=== PATIENT | male | born 1950 | race African-American/Black ===

== ENCOUNTER 2016-10-18 16:50 | Emergency (ER) | payer MEDICARE, MEDICAID ==
--- NOTE | 2016-10-18 18:10 | ER Document Report ---
ED General - General Mode of Arrival: Medic Information source: Emergency Med Personnel TRAVEL OUTSIDE OF THE [place] IN LAST 30 DAYS: No - HPI Patient complains to provider of: Hypotension, Hypoxemia, and Shortness of Breath Onset: Just prior to arrival Associated symptoms: Other - see above <JHON SEGOVIA - Last Filed: 10/18/16 18:15> <CAROLINE ADDISON - Last Filed: 10/18/16 20:16> - General Chief Complaint: Low Blood Pressure Stated Complaint: BLOOD PRESSURE PROBLEM Notes: 66 year old male with history of severe dementia presents to the ED via EMS from [facility] with initial complaint of hypotension from [facility] nurses. EMS arrived and noted a blood pressure of 166/98. [facility] nurses state that the patient's oxygen saturation was low and the patient was short of breath. EMS state that the patient was saturating at 100% and his lungs were clear. (JHON SEGOVIA) - Related Data Allergies/Adverse Reactions: Sulfa (Sulfonamide Antibiotics) Allergy (Verified 07/14/16 12:55) trimethoprim [From Bactrim] Allergy (Verified 07/14/16 12:55) Past Medical History - General Information source: Emergency Med Personnel - Social History Smoking Status: Never Smoker Chew tobacco use (# tins/day): No Frequency of alcohol use: None Drug Abuse: None Family History: None, Reviewed & Not Pertinent Patient has suicidal ideation: No Patient has homicidal ideation: No - Past Medical History Cardiac Medical History: Reports: Hx Hypercholesterolemia, Hx Hypertension Psychiatric Medical History: Reports: Hx Dementia - Immunizations Immunizations up to date: No Hx Diphtheria, Pertussis, Tetanus Vaccination: Yes - unknown Hx Pneumococcal Vaccination: 08/08/14 <JHON SEGOVIA - Last Filed: 10/18/16 18:15> Review of Systems - Review of Systems -: Yes ROS unobtainable due to patient's medical condition <JHON SEGOVIA - Last Filed: 10/18/16 18:15> Physical Exam - General General appearance: Alert, Other - Patient is non-verbal. In distress: None - HEENT Head: Normocephalic, Atraumatic Eyes: Normal Extraocular movements intact: Yes Pupils: PERRL - Respiratory Respiratory status: No respiratory distress Breath sounds: Normal - Cardiovascular Rhythm: Regular Heart sounds: Normal auscultation - Abdominal Inspection: Normal - Back Back: Normal - Extremities General upper extremity: Other - contracture of the bilateral upper extremities. No: Normal inspection General lower extremity: Other - contracture of the bilateral lower extremities. No: Normal inspection - Neurological Neuro grossly intact: Yes - patient is severely demented - Psychological Associated symptoms: Other - Patient is severely demented - Skin Skin Temperature: Warm Skin Moisture: Dry Skin Color: Normal <JHON SEGOVIA - Last Filed: 10/18/16 18:15> <CAROLINE ADDISON - Last Filed: 10/18/16 20:16> - Vital signs Vitals: Temp Pulse Resp BP Pulse Ox 98.6 F 80 18 159/95 H 100 10/18/16 17:20 10/18/16 17:20 10/18/16 17:20 10/18/16 17:20 10/18/16 17:20 (JHON SEGOVIA) (CAROLINE ADDISON) Course <JHON SEGOVIA - Last Filed: 10/18/16 18:15> - Laboratory Result Diagrams: 10/18/16 18:15 10/18/16 18:15 <CAROLINE ADDISON - Last Filed: 10/18/16 20:16> - Re-evaluation Re-evalutation: 10/18/16 20:14 The patient's presentation for emergent today is quite similar to when I saw him previously for mental status changes. He is arousable, looks around, he does not talk, he does have contractures. Otherwise examination is unremarkable. (CAROLINE ADDISON) - Vital Signs Vital signs: Temp Pulse Resp BP Pulse Ox 98.2 F 80 18 159/95 H 100 10/18/16 17:43 10/18/16 17:43 10/18/16 17:43 10/18/16 17:43 10/18/16 17:43 (JHON SEGOVIA) (CAROLINE ADDISON) - Laboratory Laboratory results interpreted by me: 10/18/16 10/18/16 10/18/16 18:15 18:15 18:35 WBC 12.1 H RBC 4.16 L Hgb 11.9 L Hct 36.2 L Absolute Neutrophils 9.1 H Sodium 146.1 H Alkaline Phosphatase 168 H Urine Blood SMALL H Urine Urobilinogen 4.0 H Ur Leukocyte Esterase TRACE H (CAROLINE ADDISON) Discharge <JHON SEGOVIA - Last Filed: 10/18/16 18:15> <CAROLINE ADDISON - Last Filed: 10/18/16 20:16> - Discharge Clinical Impression: Dementia Qualifiers: Dementia type: unspecified type Dementia behavioral disturbance: without behavioral disturbance Qualified Code(s): F03.90 - Unspecified dementia without behavioral disturbance Condition: Stable Disposition: HOME, SELF-CARE Additional Instructions: No abnormalities were found today on the laboratory and physical exam. Continue your regular medications. With your doctor as needed. RETURN TO THE EMERGENCY ROOM IF ANY NEW OR WORSENING SYMPTOMS. Scribe Attestation: 10/18/16 20:16 I personally performed the services described in the documentation, reviewed and edited the documentation which was dictated to the scribe in my presence, and it accurately records my words and actions. (CAROLINE ADDISON) Scribe Documentation - Scribe Written by Breanna:: Breanna Bell, 10/18/2016 18:25 acting as scribe for :: Kem <JHON SEGOVIA - Last Filed: 10/18/16 18:15>
[2016-10-18 18:32] LABS: ABSOLUTE EOSINOPHILS # (AUTO) 0.1 10^3/uL (0.0-0.6); ABSOLUTE LYMPHOCYTES (AUTO) 2.1 10^3/uL (0.5-4.7); ABSOLUTE MONOCYTES (AUTO) 0.8 10^3/uL (0.1-1.4); ABSOLUTE NEUT (AUTO) 9.1 10^3/uL (1.7-8.2); BASOPHILS % (AUTO) 0.2 % (0-2); EOSINOPHILS % (AUTO) 0.7 % (0-6); HEMATOCRIT 36.2 % (37.9-51.0); HEMOGLOBIN 11.9 g/dL (13.5-17.0); HGB HCT DIFFERENCE -0.5; MEAN CORPUSCULAR HEMOGLOBIN 28.6 pg (27.0-33.4); MEAN CORPUSCULAR HGB CONC 32.8 g/dL (32.0-36.0); MEAN CORPUSCULAR VOLUME 87 fl (80-97); MONOCYTES % (AUTO) 6.9 % (3-13); RED BLOOD COUNT 4.16 10^6/uL (4.35-5.55); RED CELL DISTRIBUTION WIDTH 13.4 % (11.5-14.0); SEGMENTED NEUTROPHILS % (AUTO) 75.2 % (42-78); WHITE BLOOD COUNT 12.1 10^3/uL (4.0-10.5)
[2016-10-18 18:49] LABS: ALANINE AMINOTRANSFERASE 71 U/L (21-72); ALKALINE PHOSPHATASE 168 U/L (38-126); ANION GAP 14 (5-19); ASPARTATE AMINO TRANSFERASE 32 U/L (17-59); BILIRUBIN,TOTAL 0.5 mg/dL (0.2-1.3); BLOOD UREA NITROGEN 16 mg/dL (7-20); CALCIUM 9.8 mg/dL (8.4-10.2); CARBON DIOXIDE 25 mmol/L (22-30); CHLORIDE 107 mmol/L (98-107); CREATININE RESULT 0.78 mg/dL (0.52-1.25); GLUCOSE 104 mg/dL (75-110); POTASSIUM 4.9 mmol/L (3.6-5.0); SODIUM 146.1 mmol/L (137-145); TOTAL PROTEIN 7.2 g/dL (6.3-8.2)
[2016-10-18 18:54] LABS: APPEARANCE,URINE CLEAR; BILIRUBIN,URINE NEGATIVE (NEGATIVE); GLUCOSE, URINE NEGATIVE (NEGATIVE); KETONES,URINE NEGATIVE (NEGATIVE); LEUKOCYTE ESTERASE,URINE TRACE (NEGATIVE); NITRITE,URINE NEGATIVE (NEGATIVE); PROTEIN,URINE NEGATIVE (NEGATIVE); URINE SPECIFIC GRAVITY 1.021
[2016-10-19 06:11] VITALS: BP 140/86
== END 2016-10-18 23:30 | disposition home or self-care (01) ==
LOC: ER 16:50
DX: F03.90 Unspecified dementia, unspecified severity, without behavioral disturbance, psychotic disturbance, mood disturbance, and anxiety (principal); R06.02 Shortness of breath; I95.9 Hypotension, unspecified; M62.49 Contracture of muscle, multiple sites; E78.00 Pure hypercholesterolemia, unspecified; I10 Essential (primary) hypertension; Z88.2 Allergy status to sulfonamides; Z88.3 Allergy status to other anti-infective agents
CPT/HCPCS: 36415; 80053; 81001; 85025; 99285

== ENCOUNTER 2016-11-29 14:11 | Emergency (ER) | payer MEDICARE, MEDICAID ==
--- NOTE | 2016-11-29 16:09 | ER Document Report ---
ED General - General Chief Complaint: Fall Stated Complaint: HEAD INJURY TRAVEL OUTSIDE OF THE [place] IN LAST 30 DAYS: No - HPI Patient complains to provider of: possible fall Notes: Patient coming from local shelter facility after a possible fall. The history is very medics there was no witness to a fall when EMS arrived patient was in his bed patient does have a history of falls and does wear helmet. Upon my evaluation patient is in bed no complaints with the covers over his head. Patient denies pain and shakes his head yes when asked if he wanted to go back home. - Related Data Allergies/Adverse Reactions: Sulfa (Sulfonamide Antibiotics) Allergy (Verified 07/14/16 12:55) trimethoprim [From Bactrim] Allergy (Verified 07/14/16 12:55) Past Medical History - Social History Smoking Status: Unknown if Ever Smoked Family History: None, Reviewed & Not Pertinent - Past Medical History Cardiac Medical History: Reports: Hx Hypercholesterolemia, Hx Hypertension Psychiatric Medical History: Reports: Hx Dementia - Immunizations Immunizations up to date: No Hx Diphtheria, Pertussis, Tetanus Vaccination: Yes - unknown Hx Pneumococcal Vaccination: 08/08/14 Review of Systems - Review of Systems -: Yes ROS unobtainable due to patient's medical condition - Dementia Physical Exam - Vital signs Interpretation: Normal - General General appearance: Appears well, Alert - HEENT Head: Normocephalic, Atraumatic Pupils: PERRL Pharynx: Normal Notes: No tenderness to palpation of the patient's face there is no signs of any trauma. - Respiratory Respiratory status: No respiratory distress Chest status: Nontender Breath sounds: Normal Chest palpation: Normal - Cardiovascular Rhythm: Regular Heart sounds: Normal auscultation Murmur: No - Abdominal Inspection: Normal Distension: No distension Bowel sounds: Normal Tenderness: Nontender Organomegaly: No organomegaly - Back Back: Normal, Nontender - Extremities General upper extremity: Normal inspection, Nontender, Normal color, Normal ROM , Normal temperature, Other - No bony prominence tenderness no deformities General lower extremity: Normal inspection, Nontender, Normal color, Normal ROM , Normal temperature, Normal weight bearing, Other - No bony prominence tenderness no deformities. No: Otoniel's sign - Neurological Neuro grossly intact: Yes - Skin Skin Temperature: Warm Skin Moisture: Dry Skin Color: Normal Discharge - Discharge Clinical Impression: History of fall Dementia Qualifiers: Dementia type: unspecified type Dementia behavioral disturbance: without behavioral disturbance Qualified Code(s): F03.90 - Unspecified dementia without behavioral disturbance Condition: Good Disposition: HOME, SELF-CARE Additional Instructions: Patient was evaluated today no significant trauma was found on evaluation. Please create an environment to prevent falls please make sure that patient continues to wear his helmet
[2016-11-29 17:28] VITALS: BP 129/77
== END 2016-11-29 17:19 | disposition home or self-care (01) ==
LOC: ER 14:11
DX: Z91.81 History of falling (principal); F03.90 Unspecified dementia, unspecified severity, without behavioral disturbance, psychotic disturbance, mood disturbance, and anxiety; E78.00 Pure hypercholesterolemia, unspecified; I10 Essential (primary) hypertension; Z88.2 Allergy status to sulfonamides; Z88.3 Allergy status to other anti-infective agents
CPT/HCPCS: 99284

== ENCOUNTER 2017-02-04 09:27 | Emergency (ER) | payer MEDICARE, MEDICAID ==
--- NOTE | 2017-02-04 10:36 | ER Document Report ---
ED General - General Chief Complaint: Facial Injury Stated Complaint: FALL,HEAD INJURY Mode of Arrival: Medic Information source: Emergency Med Personnel, Outside Facility Records Cannot obtain history due to: Dementia Notes: 58-year-old male history dementia presents after a fall. Patient is a history of multiple falls, actually wears a helmet however today while they were transporting the patient out of wheelchair he fell forward striking his head. Patient acting appropriately at his baseline otherwise patient has not vomited TRAVEL OUTSIDE OF THE [place] IN LAST 30 DAYS: No - HPI Onset: Just prior to arrival Onset/Duration: Sudden Quality of pain: No pain Severity: Mild Pain Level: Denies Associated symptoms: Other Exacerbated by: Denies Relieved by: Denies Similar symptoms previously: Yes Recently seen / treated by doctor: Yes - Related Data Allergies/Adverse Reactions: Sulfa (Sulfonamide Antibiotics) Allergy (Verified 02/04/17 09:38) trimethoprim [From Bactrim] Allergy (Verified 02/04/17 09:38) Past Medical History - Social History Smoking Status: Former Smoker Cigarette use (# per day): No Chew tobacco use (# tins/day): No Smoking Education Provided: No Frequency of alcohol use: None Drug Abuse: None Family History: None, Reviewed & Not Pertinent - Past Medical History Cardiac Medical History: Reports: Hx Hypercholesterolemia, Hx Hypertension Psychiatric Medical History: Reports: Hx Dementia - Immunizations Immunizations up to date: No Hx Diphtheria, Pertussis, Tetanus Vaccination: Yes - unknown Hx Pneumococcal Vaccination: 08/08/14 Review of Systems - Review of Systems Notes: REVIEW OF SYSTEMS: CONSTITUTIONAL : Denies fever, chills, or sweats. Denies recent illness. EENT: Denies eye, ear, throat, or mouth pain or symptoms. Denies nasal or sinus congestion or discharge. Denies throat, tongue, or mouth swelling or difficulty swallowing. CARDIOVASCULAR: Denies chest pain. Denies palpitations or racing or irregular heart beat. Denies ankle edema. RESPIRATORY: Denies cough, cold, or chest congestion. Denies shortness of breath, difficulty breathing, or wheezing. GASTROINTESTINAL: Denies abdominal pain or distention. Denies nausea, vomiting , or diarrhea. Denies blood in vomitus, stools, or per rectum. Denies black, tarry stools. Denies constipation. GENITOURINARY: Denies difficulty urinating, painful urination, burning, frequency, blood in urine, or discharge. MUSCULOSKELETAL: Denies back or neck pain or stiffness. Denies joint pain or swelling. SKIN: Denies rash, lesions or sores. HEMATOLOGIC : Denies easy bruising or bleeding. LYMPHATIC: Denies swollen, enlarged glands. NEUROLOGICAL: Denies confusion or altered mental status. Denies passing out or loss of consciousness. Denies dizziness or lightheadedness. Denies headache. Denies weakness or paralysis or loss of use of either side. Denies problems with gait or speech. Denies sensory loss, numbness, or tingling. Denies seizures. Admits to head injury PSYCHIATRIC: Denies anxiety or stress. Denies depression, suicidal ideation, or homicidal ideation. ALL OTHER SYSTEMS REVIEWED AND NEGATIVE. Dictation was performed using [employer] voice recognition software PHYSICAL EXAMINATION: GENERAL: Well-appearing, well-nourished and in no acute distress. HEAD: Left frontal hematoma EYES: Pupils equal round and reactive to light, extraocular movements intact, sclera anicteric, conjunctiva are normal. ENT: Nares patent, oropharynx clear without exudates. Moist mucous membranes. Superficial left upper lip laceration NECK: Normal range of motion, supple without lymphadenopathy LUNGS: Breath sounds clear to auscultation bilaterally and equal. No wheezes rales or rhonchi. HEART: Regular rate and rhythm without murmurs ABDOMEN: Soft, nontender, nondistended abdomen. No guarding, no rebound. No masses appreciated. Musculoskeletal: Normal range of motion, no pitting or edema. No cyanosis. NEUROLOGICAL: Cranial nerves grossly intact. Normal speech, normal gait. Normal sensory, motor exams PSYCH: Normal mood, normal affect. SKIN: Warm, Dry, normal turgor, no rashes or lesions noted. Physical Exam - Vital signs Vitals: Pulse Resp BP Pulse Ox 66 16 137/70 H 96 02/04/17 10:00 02/04/17 10:00 02/04/17 10:00 02/04/17 10:00 Course - Re-evaluation Re-evalutation: 02/04/17 10:36 Patient immediately placed in c-collar, CT head neck pending 02/04/17 11:51 CT head neck noted no acute abnormality c-collar was removed. Patient is at his baseline. Granddaughter is at bedside and I will discharge back to care facility After performing a Medical Screening Examination, I estimate there is LOW risk for INTRACRANIAL HEMORRHAGE, UNSTABLE SPINE FRACTURE, CENTRAL CORD SYNDROME, CAUDA EQUINA, THORACIC AORTIC DISSECTION, PNEUMOTHORAX, PERFORATED BOWEL, RUPTURED ABDOMINAL AORTIC ANEURYSM, ACUTE TENDON RUPTURE, COMPARTMENT SYNDROME, or OPEN FRACTURE, thus I consider the discharge disposition reasonable. Also, there is no evidence or peritonitis, sepsis, or toxicity. I have reevaluated this patient multiple times and no significant life threatening changes are noted. The patient granddaughter and I have discussed the diagnosis and risks, and we agree with discharging home to follow-up with their primary doctor with the understanding that symptoms and presentations can change. We also discussed returning to the Emergency Department immediately if new or worsening symptoms occur. We have discussed the symptoms which are most concerning (e.g., bloody stool, fever, changing or worsening pain, vomiting) that necessitate immediate return. - Vital Signs Vital signs: Temp Pulse Resp BP Pulse Ox 66 16 137/70 H 96 02/04/17 10:00 02/04/17 10:00 02/04/17 10:00 02/04/17 10:00 - Diagnostic Test Radiology reviewed: Image reviewed, Reports reviewed - Imaging notes no significant abnormality Discharge - Discharge Clinical Impression: Fall Qualifiers: Encounter type: initial encounter Qualified Code(s): W19.XXXA - Unspecified fall, initial encounter Head injury Qualifiers: Encounter type: initial encounter Qualified Code(s): S09.90XA - Unspecified injury of head, initial encounter Hematoma of frontal scalp Qualifiers: Encounter type: initial encounter Qualified Code(s): S00.03XA - Contusion of scalp, initial encounter Condition: Stable Disposition: HOME, SELF-CARE Additional Instructions: Please do not allow patient to fall Follow up with your physician tomorrow for further care or return to the ED IMMEDIATELY if symptoms worsen or new concerns occur. If you cannot afford to follow up with your primary care physician a list of low cost clinics have been provided at the end of your discharge papers as well.
[2017-02-04 12:46] VITALS: BP 137/88
== END 2017-02-04 12:46 | disposition home or self-care (01) ==
LOC: ER 09:27
DX: S00.03XA Contusion of scalp, initial encounter (principal); W05.0XXA Fall from non-moving wheelchair, initial encounter; Y93.89 Activity, other specified; Y92.129 Unspecified place in nursing home as the place of occurrence of the external cause; I10 Essential (primary) hypertension; Z88.2 Allergy status to sulfonamides; Z88.1 Allergy status to other antibiotic agents; Z87.891 Personal history of nicotine dependence
CPT/HCPCS: 99284; 70450; 72125; L0120

== ENCOUNTER 2017-07-22 16:31 | Emergency (ER) | payer MEDICARE, MEDICAID ==
[2017-07-22 17:33] VITALS: BP 174/60
--- NOTE | 2017-07-22 17:40 | ER Document Report ---
ED Fall - General Chief Complaint: Fall Stated Complaint: HEAD INJURY/FALL Time Seen by Provider: 07/22/17 17:21 Notes: This is a 66-year-old Alzheimer dementia patient from a [facility] status post fall this morning. By report from nursing facility patient was found on the floor. Was in a wheelchair and fell out. Patient wears a helmet at all times due to frequent falls. According to the notes and [facility] staff states that he is acting normal. Daughter is at bedside and states that he has to come every time he falls based on protocols. Daughter states that he is acting normal. Does not appear to be in any distress. Patient is unable to communicate based on severe dementia and aphasia. TRAVEL OUTSIDE OF THE [place] IN LAST 30 DAYS: No - Related data Allergies/Adverse Reactions: Sulfa (Sulfonamide Antibiotics) Allergy (Verified 02/04/17 09:38) trimethoprim [From Bactrim] Allergy (Verified 02/04/17 09:38) Past Medical History - General Information source: Relative, Outside Facility Records Cannot obtain history due to: Dementia - Social History Smoking Status: Former Smoker Family History: None, Reviewed & Not Pertinent Patient has suicidal ideation: No Patient has homicidal ideation: No - Past Medical History Cardiac Medical History: Reports: Hx Hypercholesterolemia, Hx Hypertension Renal/ Medical History: Denies: Hx Peritoneal Dialysis Psychiatric Medical History: Reports: Hx Dementia Surgical Hx: Negative - Immunizations Immunizations up to date: No Hx Diphtheria, Pertussis, Tetanus Vaccination: Yes - unknown Hx Pneumococcal Vaccination: 08/08/14 Review of Systems - Review of Systems -: Yes ROS unobtainable due to patient's medical condition - Unable to obtain due to dementia. Physical Exam - Vital signs Vitals: Temp Pulse Resp BP Pulse Ox 98.5 F 70 18 174/60 H 97 07/22/17 17:22 07/22/17 17:22 07/22/17 17:22 07/22/17 17:22 07/22/17 17:22 Interpretation: Normal - General General appearance: Alert - HEENT Head: Normocephalic, Atraumatic. No: Abrasions, Cardenas's sign, Ecchymosis, Open wounds Eyes: Normal Conjunctiva: Normal Cornea: Normal Extraocular movements intact: Yes Pupils: PERRL - Respiratory Respiratory status: No respiratory distress. No: Respiratory distress, Labored Breath sounds: Normal Chest palpation: Normal - Cardiovascular Rhythm: Regular Heart sounds: Normal auscultation Murmur: No Pulses: Normal: Femoral, Posterior tibial, Dorsalis pedis Normal capillary refill: Yes - Abdominal Inspection: Normal Distension: No distension Bowel sounds: Normal Tenderness: Nontender. No: Rebound Organomegaly: No organomegaly - Back Back: Nontender. No: Deformity/step-off, Vertebra tenderness, Scars, Wounds - Extremities General upper extremity: Normal ROM General lower extremity: Normal inspection Shoulder: Normal Arm: Normal Elbow: Normal Forearm: Normal Wrist: Normal Hand: Normal Hip: Normal Knee: Normal Ankle: Normal. No: Tender Foot: Normal. No: Tender - Neurological Cognition: Other - Baseline dementia Speech: Expressive aphasia Cranial nerves: Normal Motor strength normal: LUE, RUE, LLE, RLE - Psychological Associated symptoms: Other - Dementia - Skin Skin Temperature: Warm Skin Moisture: Dry Skin Color: Normal Irregularity with: negative: Swelling, Tenderness Notes: No obvious lacerations or abrasions or contusions. No obvious decubiti. Course - Re-evaluation Re-evalutation: 07/22/17 17:39 This is a 66-year-old male with end-stage dementia. No obvious signs of trauma. Patient is at baseline according to daughter and [facility] records. No physical signs of trauma. At this time I do not feel compelled to order any further testing. Thankfully, patient wears a helmet at all times due to his frequent falls so may be this saved him from having any kind of intracranial injuries. Spoke at length with daughter regarding his care and she will continue to monitor at the nursing facility. If patient develops any worsening pain or decreased mental status he is to be returned here for further evaluation but will discharge at this time in stable condition. - Vital Signs Vital signs: Temp Pulse Resp BP Pulse Ox 98.5 F 70 18 174/60 H 97 07/22/17 17:22 07/22/17 17:22 07/22/17 17:22 07/22/17 17:22 07/22/17 17:22 Discharge - Discharge Clinical Impression: Dementia, Accident due to mechanical fall without injury Condition: Good Disposition: HOME-SNF (ED ONLY) Additional Instructions: Dementia The exam shows a decrease in mental ability called dementia. Signs of dementia include a gradual loss of memory and a decreased ability to reason and solve problems. Personality changes, hostility, lack of self-care, and loss of bladder or bowel control are later signs of dementia. In these later stages, patients may become confused, lost, fearful, or agitated, even in familiar places. Alzheimer's disease is the most common type of dementia. It has no known cause or specific treatment. Other causes include alcohol and drug abuse, medication effects (especially tranquilizers and sleeping pills), strokes, head injuries, and brain tumors. Sometimes severe depression in an elderly person is mistaken for dementia, and this can be treated if recognized. A complete medical evaluation and ongoing care with a doctor is important. Most people with dementia need help or supervision with daily living. Some may be able to live independently with occasional help; others require foster care or even [facility] placement. Alcohol, sedatives, and antihistamines may make the symptoms worse and should be avoided. Alzheimer's disease support groups are available in some communities and can be very valuable to the entire family. Prescription medication can ease the symptoms of Alzheimer's disease in some patients. Please arrange for medical follow-up. Return here if there is a sudden change in mental function, inability to move an arm or leg, inability to speak, fever, or any other significant change. Mechanical fall If patient begins to experience any change in mental status, unexplained pain or any other concerns please notify nursing staff to have patient reevaluated either by his primary care doctor at the nursing facility or transport patient back to the emergency department for repeat evaluation.
== END 2017-07-22 20:33 ==
LOC: ER 16:31
DX: F03.90 Unspecified dementia, unspecified severity, without behavioral disturbance, psychotic disturbance, mood disturbance, and anxiety (principal); W05.0XXA Fall from non-moving wheelchair, initial encounter; Y92.129 Unspecified place in nursing home as the place of occurrence of the external cause; Z91.81 History of falling; E78.00 Pure hypercholesterolemia, unspecified; I10 Essential (primary) hypertension
CPT/HCPCS: 99284

== ENCOUNTER 2017-09-08 06:19 | Emergency (ER) | payer MEDICARE, MEDICAID ==
[2017-09-08 07:00] LABS: ABSOLUTE EOSINOPHILS # (AUTO) 0.1 10^3/uL (0.0-0.6); ABSOLUTE LYMPHOCYTES (AUTO) 1.1 10^3/uL (0.5-4.7); ABSOLUTE MONOCYTES (AUTO) 0.8 10^3/uL (0.1-1.4); ABSOLUTE NEUT (AUTO) 4.3 10^3/uL (1.7-8.2); BASOPHILS % (AUTO) 0.3 % (0-2); EOSINOPHILS % (AUTO) 1.7 % (0-6); HEMATOCRIT 36.5 % (37.9-51.0); HEMOGLOBIN 12.3 g/dL (13.5-17.0); HGB HCT DIFFERENCE 0.4; LYMPHOCYTES % (AUTO) 17.3 % (13-45); MEAN CORPUSCULAR HEMOGLOBIN 29.2 pg (27.0-33.4); MEAN CORPUSCULAR HGB CONC 33.6 g/dL (32.0-36.0); MEAN CORPUSCULAR VOLUME 87 fl (80-97); MONOCYTES % (AUTO) 13.1 % (3-13); RED CELL DISTRIBUTION WIDTH 13.9 % (11.5-14.0); SEGMENTED NEUTROPHILS % (AUTO) 67.6 % (42-78); WHITE BLOOD COUNT 6.4 10^3/uL (4.0-10.5)
--- NOTE | 2017-09-08 07:11 | RADIOLOGY REPORT (SQ) ---
EXAM DESCRIPTION: CHEST SINGLE VIEW COMPLETED DATE/TIME: 09/08/2017 7:01 am REASON FOR STUDY: er 19 high fever COMPARISON: 10.08.16 EXAM PARAMETERS: NUMBER OF VIEWS: One view. TECHNIQUE: Single frontal radiographic view of the chest acquired. RADIATION DOSE: NA LIMITATIONS: None. FINDINGS: LUNGS AND PLEURA: No opacities, masses or pneumothorax. No pleural effusion. MEDIASTINUM AND HILAR STRUCTURES: No masses. Contour normal. HEART AND VASCULAR STRUCTURES: Heart normal in size. Normal vasculature. BONES: No acute findings. HARDWARE: None in the chest. OTHER: No other significant finding. IMPRESSION: NO ACUTE RADIOGRAPHIC FINDING IN THE CHEST. TECHNICAL DOCUMENTATION: JOB ID: [id number] [employer]- All Rights Reserved
[2017-09-08 07:19] LABS: ALANINE AMINOTRANSFERASE 45 U/L (21-72); ALBUMIN 3.7 g/dL (3.5-5.0); ALKALINE PHOSPHATASE 92 U/L (38-126); ANION GAP 14 (5-19); ASPARTATE AMINO TRANSFERASE 27 U/L (17-59); BILIRUBIN,DIRECT 0.3 mg/dL (0.0-0.4); BILIRUBIN,TOTAL 0.3 mg/dL (0.2-1.3); BLOOD UREA NITROGEN 17 mg/dL (7-20); CALCIUM 8.9 mg/dL (8.4-10.2); CARBON DIOXIDE 21 mmol/L (22-30); CHLORIDE 111 mmol/L (98-107); GLUCOSE 116 mg/dL (75-110); POTASSIUM 4.1 mmol/L (3.6-5.0); SODIUM 145.7 mmol/L (137-145); TOTAL PROTEIN 6.6 g/dL (6.3-8.2)
[2017-09-08 08:50] LABS: APPEARANCE,URINE CLEAR; BILIRUBIN,URINE NEGATIVE (NEGATIVE); GLUCOSE, URINE NEGATIVE (NEGATIVE); KETONES,URINE NEGATIVE (NEGATIVE); LEUKOCYTE ESTERASE,URINE NEGATIVE (NEGATIVE); NITRITE,URINE NEGATIVE (NEGATIVE); PROTEIN,URINE NEGATIVE (NEGATIVE); URINE SPECIFIC GRAVITY 1.016; UROBILINOGEN,URINE NEGATIVE mg/dL (<2.0)
--- NOTE | 2017-09-08 10:37 | ER Document Report ---
ED Fever - General Chief Complaint: Fever Stated Complaint: FEVER Time Seen by Provider: 09/08/17 07:22 Mode of Arrival: Medic Information source: Emergency Med Personnel, Outside Facility Records Notes: Patient is a 66-year-old male with Alzheimer's dementia who presents to the ER Via EMS from [facility] (longterm) for "high fever." They did not either take his temperature or report his temperature to EMS, EMS stating that it was an "unknown temperature" but they did give "an unknown dose" of Tylenol per EMS. Tylenol was also given on EMS as they did get a temperature of 100.8F. Here on arrival his temperature was 100.2F. Patient is nonverbal and this appears to be his usual mental state. I have no other information at this time. TRAVEL OUTSIDE OF THE [place] IN LAST 30 DAYS: No - Related Data Allergies/Adverse Reactions: Sulfa (Sulfonamide Antibiotics) Allergy (Verified 09/08/17 06:31) trimethoprim [From Bactrim] Allergy (Verified 09/08/17 06:31) Past Medical History - General Information source: Emergency Med Personnel, Outside Facility Records - Social History Smoking Status: Never Smoker Family History: None, Reviewed & Not Pertinent Patient has suicidal ideation: No Patient has homicidal ideation: No - Past Medical History Cardiac Medical History: Reports: Hx Hypercholesterolemia, Hx Hypertension Renal/ Medical History: Denies: Hx Peritoneal Dialysis Psychiatric Medical History: Reports: Hx Dementia - Immunizations Immunizations up to date: No Hx Diphtheria, Pertussis, Tetanus Vaccination: Yes - unknown Hx Pneumococcal Vaccination: 08/08/14 Review of Systems - Review of Systems Constitutional: See HPI EENT: No symptoms reported Cardiovascular: No symptoms reported Respiratory: No symptoms reported Gastrointestinal: No symptoms reported Genitourinary: No symptoms reported Male Genitourinary: No symptoms reported Musculoskeletal: No symptoms reported Skin: No symptoms reported Hematologic/Lymphatic: No symptoms reported Neurological/Psychological: See HPI Physical Exam - Vital signs Vitals: Temp Pulse Resp BP Pulse Ox 100.2 F 102 H 19 120/82 97 09/08/17 06:31 09/08/17 06:31 09/08/17 06:31 09/08/17 06:31 09/08/17 06:31 - Notes Notes: PHYSICAL EXAMINATION: GENERAL: demented, nonverbal, in no acute distress. HEAD: Atraumatic, normocephalic. EYES: Pupils equal round and reactive to light, extraocular movements intact, sclera anicteric, conjunctiva are normal. ENT: ear canals without erythema or foreign body, TMs pearly garces with good bony landmarks, nares patent, oropharynx clear without exudates. Moist mucous membranes. NECK: Normal range of motion, supple without lymphadenopathy LUNGS: CTAB and equal. No wheezes rales or rhonchi. HEART: Regular rate and rhythm without murmurs ABDOMEN: Soft, no tenderness. No guarding, no rebound GI/: no CVA tenderness EXTREMITIES: contracted right arm, no pitting edema. No cyanosis. NEUROLOGICAL: demented, nonverbal, opens eyes occasionally SKIN: Warm, Dry, normal turgor, no rashes or lesions noted Course - Re-evaluation Re-evalutation: 09/08/17 11:36 Lab work is unremarkable with a normal white blood cell count, normal urinalysis , negative chest x-ray, negative influenza and strep. Blood cultures are pending at this time. I have no source of patient's fever and have consulted with my attending, Dr. Brownlee who agrees with my plan to send patient back to the longterm to be given Tylenol for fever every 4 hours as needed for fever and return with worsening symptoms. - Vital Signs Vital signs: Temp Pulse Resp BP Pulse Ox 98.0 F 102 H 30 H 142/97 H 100 09/08/17 09:00 09/08/17 06:31 09/08/17 11:01 09/08/17 10:58 09/08/17 11:00 - Laboratory Result Diagrams: 09/08/17 06:45 09/08/17 06:45 Laboratory results interpreted by me: 09/08/17 09/08/17 09/08/17 06:45 06:45 07:55 RBC 4.20 L Hgb 12.3 L Hct 36.5 L Plt Count 124 L Monocytes % 13.1 H Sodium 145.7 H Chloride 111 H Carbon Dioxide 21 L Glucose 116 H Urine Blood SMALL H Discharge - Discharge Clinical Impression: Dementia Qualifiers: Dementia type: Alzheimer's disease Alzheimer's disease onset: unspecified onset Dementia behavioral disturbance: with behavioral disturbance Qualified Code(s): G30.8 - Other Alzheimer's disease Fever Qualifiers: Fever type: unspecified Qualified Code(s): R50.9 - Fever, unspecified Condition: Stable Disposition: HOME-SNF (ED ONLY) Instructions: Acetaminophen, Fever ([facility]) Additional Instructions: Please give him Tylenol every 4 hours as needed for fever. Return immediately for any new or worsening symptoms. Follow up with primary care provider, call tomorrow to make followup appointment. Referrals: EZRA OSORIO MD [NO LOCAL MD] - Follow up as needed
[2017-09-08 12:11] VITALS: BP 135/98
== END 2017-09-08 11:58 ==
LOC: ER 06:19
DX: G30.8 Other Alzheimer's disease (principal); R50.9 Fever, unspecified; F02.80 Dementia in other diseases classified elsewhere, unspecified severity, without behavioral disturbance, psychotic disturbance, mood disturbance, and anxiety
CPT/HCPCS: 36415; 51701; 71010; 80053; 81001; 82550; 83605; 85025; 87040; 87070; 87804; 87880; 99285

== ENCOUNTER 2017-09-15 16:44 | Emergency (ER) | payer MEDICARE, MEDICAID ==
--- NOTE | 2017-09-15 17:41 | RADIOLOGY REPORT (SQ) ---
EXAM DESCRIPTION: CT HEAD WITHOUT COMPLETED DATE/TIME: 09/15/2017 5:25 pm REASON FOR STUDY: fall COMPARISON: 02/04/2017 TECHNIQUE: Axial images acquired through the brain without intravenous contrast. Images reviewed wi th bone, brain and subdural windows. Images stored on PACS. All CT scanners at this facility use dose modulation, iterative reconstruction, and/or weight based d osing when appropriate to reduce radiation dose to as low as reasonably achievable (ALARA). [facility]: Dose Right [facility]: CareDose [facility]: Dose Right [facility]: Teradose 4D [facility]: ClickSquared RADIATION DOSE: 67.05 mGy. LIMITATIONS: None. FINDINGS: VENTRICLES: Age-appropriate. CEREBRUM: No masses. No hemorrhage. No midline shift. Areas of low density in the white matter mos t likely due to chronic micro-vascular ischemic change. No evidence for acute infarction. CEREBELLUM: No masses. No hemorrhage. No alteration of density. No evidence for acute infarction. EXTRAAXIAL SPACES: Mild age-related involutional change. No fluid collections. No masses. ORBITS AND GLOBE: No intra- or extraconal masses. Normal contour of globe without masses. CALVARIUM: No fracture. PARANASAL SINUSES: Mild chronic mucosal thickening. SOFT TISSUES: No mass or hematoma. OTHER: No other significant finding. IMPRESSION: MILD CHRONIC CHANGES OF ATROPHY AND MICROVASCULAR ISCHEMIA. NO ACUTE PROCESS. EVIDENCE OF ACUTE STROKE: NO. TECHNICAL DOCUMENTATION: JOB ID: [id number] [place]-72 Quality ID # [id number]: Final reports with documentation of one or more dose reduction techniques (e.g., Au tomated exposure control, adjustment of the mA and/or kV according to patient size, use of iterative reconstruction technique) 2010 [employer]- All Rights Reserved
--- NOTE | 2017-09-15 17:46 | RADIOLOGY REPORT (SQ) ---
EXAM DESCRIPTION: CT CERVICAL SPINE WITHOUT COMPLETED DATE/TIME: 09/15/2017 5:25 pm REASON FOR STUDY: fall COMPARISON: None. TECHNIQUE: Axial images acquired through the cervical spine without intravenous contrast. Images re viewed with lung, soft tissue and bone windows. Reconstructed coronal and sagittal MPR images review ed. Images stored on PACS. All CT scanners at this facility use dose modulation, iterative reconstruction, and/or weight based d osing when appropriate to reduce radiation dose to as low as reasonably achievable (ALARA). [facility]: Dose Right [facility]: CareDose [facility]: Dose Right [facility]: Teradose 4D [facility]: An[employer] RADIATION DOSE: 18.70 mGy. LIMITATIONS: None. FINDINGS: ALIGNMENT: Anatomic. MINERALIZATION: Normal. VERTEBRAL BODIES: No fractures or dislocation. DISCS: Multilevel disc space narrowing with osteophytes. FACETS, LATERAL MASSES, POSTERIOR ELEMENTS: Facet arthropathy. No fractures. No dislocation. No ac bessie findings. HARDWARE: None in the spine. VISUALIZED RIBS: No fractures. LUNG APICES AND SOFT TISSUES: No significant or acute findings. OTHER: No other significant finding. IMPRESSION: CHRONIC DEGENERATIVE CHANGES. NO ACUTE FINDINGS. TECHNICAL DOCUMENTATION: JOB ID: [id number] [place]-72 Quality ID # [id number]: Final reports with documentation of one or more dose reduction techniques (e.g., Au tomated exposure control, adjustment of the mA and/or kV according to patient size, use of iterative reconstruction technique) 2010 [employer]- All Rights Reserved
--- NOTE | 2017-09-15 18:42 | ER Document Report ---
ED Fall - General Chief Complaint: Fall Stated Complaint: FALL/ BODY PAIN Time Seen by Provider: 09/15/17 18:16 Information source: Relative Notes: Patient presents from the [facility] rehabilitation secondary to a fall from a low height. Patient does not talk or walk at baseline. Family is at the bedside and states that he is at his baseline. TRAVEL OUTSIDE OF THE [place] IN LAST 30 DAYS: No - HPI Occurred: Just prior to arrival Where: Home Context: Fell from height Associated symptoms: None Location of injury/pain: Head Quality of pain: Other - unable to obtain seconary to patient's condition Severity: Mild Pain Level: Denies Prehospital interventions: C-collar - Related data Allergies/Adverse Reactions: Sulfa (Sulfonamide Antibiotics) Allergy (Verified 09/08/17 06:31) trimethoprim [From Bactrim] Allergy (Verified 09/08/17 06:31) Past Medical History - General Information source: Patient - Social History Smoking Status: Unknown if Ever Smoked Cigarette use (# per day): No Chew tobacco use (# tins/day): No Smoking Education Provided: No Frequency of alcohol use: None Drug Abuse: None Family History: None, Reviewed & Not Pertinent Patient has suicidal ideation: No Patient has homicidal ideation: No - Past Medical History Cardiac Medical History: Reports: Hx Hypercholesterolemia, Hx Hypertension Renal/ Medical History: Denies: Hx Peritoneal Dialysis Psychiatric Medical History: Reports: Hx Dementia - Immunizations Immunizations up to date: No Hx Diphtheria, Pertussis, Tetanus Vaccination: Yes - unknown Hx Pneumococcal Vaccination: 08/08/14 Review of Systems - Review of Systems -: Yes ROS unobtainable due to patient's medical condition Physical Exam - Vital signs Vitals: Temp Pulse Resp BP Pulse Ox 98.5 F 85 20 168/98 H 94 09/15/17 16:54 09/15/17 16:54 09/15/17 16:54 09/15/17 16:54 09/15/17 16:54 Notes: Reviewed vital signs and nursing note as charted by RN. CONSTITUTIONAL: Alert but does not talk at baseline HEAD: Normocephalic; atraumatic EYES: PERRL ENT: Normal nose NECK: Supple without meningismus; non-tender CARD: Regular rate and rhythm; no murmurs RESP: Normal chest excursion without splinting or tachypnea; breath sounds clear and equal bilaterally ABD/GI: Normal bowel sounds; non-distended; soft, non-tender BACK: The back appears normal and is non-tender to palpation EXT: Normal ROM in all joints; non-tender to palpation; no edema NEURO: Moves all extremities equally; Motor and sensory function intact Course - Re-evaluation Re-evalutation: Given the above history and physical examination, I will obtain a CT scan of the head and cervical spine. 09/15/17 18:41 CT scan of the head and cervical spine shows no acute fractures or intracranial abnormalities. Patient will be discharged back home to the nursing care faciltiy with strict return precautions and follow-up with the primary provider. - Vital Signs Vital signs: Temp Pulse Resp BP Pulse Ox 98.5 F 81 20 168/98 H 94 09/15/17 16:54 09/15/17 17:29 09/15/17 16:54 09/15/17 16:54 09/15/17 16:54 Discharge - Discharge Clinical Impression: Fall Qualifiers: Encounter type: initial encounter Qualified Code(s): W19.XXXA - Unspecified fall, initial encounter Closed head injury Qualifiers: Encounter type: initial encounter Qualified Code(s): S09.90XA - Unspecified injury of head, initial encounter Condition: Good Disposition: HOME, SELF-CARE Additional Instructions: Come back immediately for any increased pain, change in mental status, fevers or vomiting, or any other acute problems.
[2017-09-15 19:39] VITALS: BP 127/69
== END 2017-09-15 19:43 | disposition home or self-care (01) ==
LOC: ER 16:44
DX: S09.90XA Unspecified injury of head, initial encounter (principal); W06.XXXA Fall from bed, initial encounter; Y92.193 Bedroom in other specified residential institution as the place of occurrence of the external cause; I10 Essential (primary) hypertension; Z88.2 Allergy status to sulfonamides; Z88.1 Allergy status to other antibiotic agents
CPT/HCPCS: 70450; 72125; 99285

== ENCOUNTER 2017-11-28 08:37 | Emergency (ER) | payer MEDICARE, MEDICAID ==
--- NOTE | 2017-11-28 08:58 | ER Document Report ---
ED General - General Stated Complaint: POSSIBLE SEIZURE Time Seen by Provider: 11/28/17 08:51 Mode of Arrival: Medic Information source: Relative, Emergency Med Personnel Cannot obtain history due to: Altered mental status Notes: 67-year-old male history of Alzheimer's dementia presents from care facility with concerns for altered mental status and unresponsiveness. Patient was found unresponsive by facility EMS notes that he has since become more responsive has good strength in the hands and legs and is opening his eyes TRAVEL OUTSIDE OF THE [place] IN LAST 30 DAYS: No - HPI Onset: Just prior to arrival Onset/Duration: Sudden Quality of pain: No pain Severity: Mild Pain Level: Denies Associated symptoms: Slow to respond Exacerbated by: Denies Relieved by: Denies Similar symptoms previously: No Recently seen / treated by doctor: Yes - Related Data Allergies/Adverse Reactions: Sulfa (Sulfonamide Antibiotics) Allergy (Verified 09/08/17 06:31) trimethoprim [From Bactrim] Allergy (Verified 09/08/17 06:31) Past Medical History - Social History Smoking Status: Never Smoker Cigarette use (# per day): No Chew tobacco use (# tins/day): No Smoking Education Provided: No Family History: None, Reviewed & Not Pertinent - Past Medical History Cardiac Medical History: Reports: Hx Hypercholesterolemia, Hx Hypertension Renal/ Medical History: Denies: Hx Peritoneal Dialysis Psychiatric Medical History: Reports: Hx Dementia - Immunizations Immunizations up to date: No Hx Diphtheria, Pertussis, Tetanus Vaccination: Yes - unknown Hx Pneumococcal Vaccination: 08/08/14 Review of Systems - Review of Systems Notes: REVIEW OF SYSTEMS: CONSTITUTIONAL : Denies fever, chills, or sweats. Denies recent illness. EENT: Denies eye, ear, throat, or mouth pain or symptoms. Denies nasal or sinus congestion or discharge. Denies throat, tongue, or mouth swelling or difficulty swallowing. CARDIOVASCULAR: Denies chest pain. Denies palpitations or racing or irregular heart beat. Denies ankle edema. RESPIRATORY: Denies cough, cold, or chest congestion. Denies shortness of breath, difficulty breathing, or wheezing. GASTROINTESTINAL: Denies abdominal pain or distention. Denies nausea, vomiting , or diarrhea. Denies blood in vomitus, stools, or per rectum. Denies black, tarry stools. Denies constipation. GENITOURINARY: Denies difficulty urinating, painful urination, burning, frequency, blood in urine, or discharge. MUSCULOSKELETAL: Denies back or neck pain or stiffness. Denies joint pain or swelling. SKIN: Denies rash, lesions or sores. HEMATOLOGIC : Denies easy bruising or bleeding. LYMPHATIC: Denies swollen, enlarged glands. NEUROLOGICAL: Altered mental status noted per facility PSYCHIATRIC: Denies anxiety or stress. Denies depression, suicidal ideation, or homicidal ideation. ALL OTHER SYSTEMS REVIEWED AND NEGATIVE. Dictation was performed using [employer] voice recognition software PHYSICAL EXAMINATION: GENERAL: Elderly male no acute distress HEAD: Atraumatic, normocephalic. EYES: Pupils equal round and reactive to light, extraocular movements intact, sclera anicteric, conjunctiva are normal. ENT: Nares patent, oropharynx clear without exudates. Moist mucous membranes. NECK: Normal range of motion, supple without lymphadenopathy LUNGS: Breath sounds clear to auscultation bilaterally and equal. No wheezes rales or rhonchi. HEART: Regular rate and rhythm without murmurs ABDOMEN: Soft, nontender, nondistended abdomen. No guarding, no rebound. No masses appreciated. Wearing diapers Musculoskeletal: Normal range of motion, no pitting or edema. No cyanosis. NEUROLOGICAL: Patient has good strength of the upper extremities and lower extremities, sensation is intact SKIN: Warm, Dry, normal turgor, no rashes or lesions noted. Physical Exam - Vital signs Vitals: Resp BP Pulse Ox 14 121/66 99 11/28/17 08:41 11/28/17 08:41 11/28/17 08:41 Course - Re-evaluation Re-evalutation: 11/28/17 08:57 There is a questionable episode of seizure and postictal state, patient is becoming more responsive, lab work pending 11/28/17 11:14 Per family patient is back at baseline, he is acting appropriate to them, Workup was quite benign here, I do not have an explanation for this episode, possibilities hypotensive episode hypoglycemic episode seizure-like activity versus CVA stroke or medication overdose, given that the patient is at baseline and family feels he is stable I will discharge him back home to follow-up with neurology for further evaluation and care After performing a Medical Screening Examination, I estimate there is LOW risk for INTRACRANIAL HEMORRHAGE, ISCHEMIC CVA, MALIGNANT DYSRHYTHMIA, ACUTE CORONARY SYNDROME, MENINGITIS, PULMONARY EMBOLISM, or SEPSIS thus I consider the discharge disposition reasonable. I have reevaluated this patient multiple times and no significant life threatening changes are noted. The patient family and I have discussed the diagnosis and risks, and we agree with discharging home with close follow-up with the understanding that symptoms and presentations can change. We also discussed returning to the Emergency Department immediately if new or worsening symptoms occur. We have discussed the symptoms which are most concerning (e.g., changing or worsening pain, weakness, vomiting, fever) that necessitate immediate return. - Vital Signs Vital signs: Temp Pulse Resp BP Pulse Ox 21 H 123/85 95 11/28/17 10:01 11/28/17 10:01 11/28/17 10:01 - Laboratory Result Diagrams: 11/28/17 08:40 11/28/17 08:40 Laboratory results interpreted by me: 11/28/17 11/28/17 11/28/17 08:40 08:40 10:00 RBC 4.34 L Hgb 12.4 L Chloride 108 H Urine Protein 30 H Ur Leukocyte Esterase TRACE H - Diagnostic Test Radiology reviewed: Image reviewed, Reports reviewed - EKG Interpretation by Me EKG shows normal: Sinus rhythm, [place], Intervals, QRS Complexes Discharge - Discharge Clinical Impression: Altered mental status Qualifiers: Altered mental status type: disorientation Qualified Code(s): R41.0 - Disorientation, unspecified Dementia Qualifiers: Dementia type: Alzheimer's disease Alzheimer's disease onset: late-onset Dementia behavioral disturbance: without behavioral disturbance Qualified Code(s ): G30.1 - Alzheimer's disease with late onset; F02.80 - Dementia in other diseases classified elsewhere without behavioral disturbance; F02.80 - Dementia in other diseases classified elsewhere without behavioral disturbance; F02.80 - Dementia in other diseases classified elsewhere without behavioral disturbance Condition: Stable Disposition: HOME, SELF-CARE Instructions: Altered Mental Status ([facility]) Additional Instructions: Follow up with your physician tomorrow for further care or return to the ED IMMEDIATELY if symptoms worsen or new concerns occur. If you cannot afford to follow up with your primary care physician a list of low cost clinics have been provided at the end of your discharge papers as well. Referrals: TALON BETANCOURT MD [Primary Care Provider] - Follow up as needed CJ BETANCUR MD [ACTIVE STAFF] - Follow up tomorrow
[2017-11-28 09:08] LABS: ABSOLUTE EOSINOPHILS # (AUTO) 0.2 10^3/uL (0.0-0.6); ABSOLUTE MONOCYTES (AUTO) 0.6 10^3/uL (0.1-1.4); ABSOLUTE NEUT (AUTO) 4.5 10^3/uL (1.7-8.2); BASOPHILS % (AUTO) 0.5 % (0-2); EOSINOPHILS % (AUTO) 3.1 % (0-6); HEMATOCRIT 38.3 % (37.9-51.0); HEMOGLOBIN 12.4 g/dL (13.5-17.0); LYMPHOCYTES % (AUTO) 27.1 % (13-45); MEAN CORPUSCULAR HEMOGLOBIN 28.6 pg (27.0-33.4); MEAN CORPUSCULAR HGB CONC 32.4 g/dL (32.0-36.0); MEAN CORPUSCULAR VOLUME 88 fl (80-97); PLATELET COUNT 170 10^3/uL (150-450); RED BLOOD COUNT 4.34 10^6/uL (4.35-5.55); RED CELL DISTRIBUTION WIDTH 13.9 % (11.5-14.0); SEGMENTED NEUTROPHILS % (AUTO) 61.3 % (42-78); TOTAL CELLS COUNTED % (AUTO) 100 %; WHITE BLOOD COUNT 7.4 10^3/uL (4.0-10.5)
[2017-11-28 09:30] LABS: ALANINE AMINOTRANSFERASE 27 U/L (21-72); ALBUMIN 4.4 g/dL (3.5-5.0); ALKALINE PHOSPHATASE 65 U/L (38-126); ANION GAP 12 (5-19); ASPARTATE AMINO TRANSFERASE 21 U/L (17-59); BILIRUBIN,DIRECT 0.3 mg/dL (0.0-0.4); BILIRUBIN,TOTAL 0.3 mg/dL (0.2-1.3); BLOOD UREA NITROGEN 17 mg/dL (7-20); CALCIUM 9.9 mg/dL (8.4-10.2); CARBON DIOXIDE 24 mmol/L (22-30); CHLORIDE 108 mmol/L (98-107); GLUCOSE 102 mg/dL (75-110); INTERNATIONAL RATION (INR) 1.02; POTASSIUM 4.2 mmol/L (3.6-5.0); PROTHROMBIN TIME 14.1 SEC (11.4-15.4); SODIUM 144.2 mmol/L (137-145); TOTAL PROTEIN 7.5 g/dL (6.3-8.2)
--- NOTE | 2017-11-28 09:49 | RADIOLOGY REPORT (SQ) ---
EXAM DESCRIPTION: CHEST SINGLE VIEW COMPLETED DATE/TIME: 11/28/2017 9:34 am REASON FOR STUDY: altered COMPARISON: 09/08/2017. EXAM PARAMETERS: NUMBER OF VIEWS: One view. TECHNIQUE: Single frontal radiographic view of the chest acquired. RADIATION DOSE: NA LIMITATIONS: None. FINDINGS: LUNGS AND PLEURA: No opacities, masses or pneumothorax. No pleural effusion. MEDIASTINUM AND HILAR STRUCTURES: No masses. Contour normal. HEART AND VASCULAR STRUCTURES: Heart normal in size. Normal vasculature. BONES: No acute findings. HARDWARE: None in the chest. OTHER: No other significant finding. IMPRESSION: NO ACUTE RADIOGRAPHIC FINDING IN THE CHEST. TECHNICAL DOCUMENTATION: JOB ID: [id number] [employer]- All Rights Reserved
--- NOTE | 2017-11-28 09:50 | RADIOLOGY REPORT (SQ) ---
EXAM DESCRIPTION: CT HEAD WITHOUT COMPLETED DATE/TIME: 11/28/2017 9:34 am REASON FOR STUDY: altered COMPARISON: 09/15/2017. TECHNIQUE: Axial images acquired through the brain without intravenous contrast. Images reviewed wi th bone, brain and subdural windows. Images stored on PACS. All CT scanners at this facility use dose modulation, iterative reconstruction, and/or weight based d osing when appropriate to reduce radiation dose to as low as reasonably achievable (ALARA). [facility]: Dose Right [facility]: CareDose [facility]: Dose Right [facility]: Teradose 4D [facility]: Smart [employer] RADIATION DOSE: CT Rad equipment meets quality standard of care and radiation dose reduction techniq ues were employed. CTDIvol: 64.6 mGy. DLP: 1809 mGy-cm.mGy. LIMITATIONS: None. FINDINGS: VENTRICLES: Prominent. CEREBRUM: No masses. No hemorrhage. No midline shift. Areas of low density in the white matter mos t likely due to chronic micro-vascular ischemic change. No evidence for acute infarction. CEREBELLUM: No masses. No hemorrhage. No alteration of density. No evidence for acute infarction. EXTRAAXIAL SPACES: Age-related involutional change. No fluid collections. No masses. ORBITS AND GLOBE: No intra- or extraconal masses. Normal contour of globe without masses. CALVARIUM: No fracture. PARANASAL SINUSES: No fluid or mucosal thickening. SOFT TISSUES: No mass or hematoma. OTHER: No other significant finding. IMPRESSION: CHRONIC CHANGES OF ATROPHY AND MICROVASCULAR ISCHEMIA. NO ACUTE PROCESS. EVIDENCE OF ACUTE STROKE: NO. TECHNICAL DOCUMENTATION: JOB ID: [id number] Quality ID # [id number]: Final reports with documentation of one or more dose reduction techniques (e.g., Au tomated exposure control, adjustment of the mA and/or kV according to patient size, use of iterative reconstruction technique) 2010 [employer]- All Rights Reserved
[2017-11-28 10:22] LABS: VENOUS BLOOD HCO3 27.7 mmol/L (20-32); VENOUS BLOOD PCO2 52.9 mmHg (35-63); VENOUS BLOOD PH 7.34 (7.30-7.42)
[2017-11-28 10:29] LABS: APPEARANCE,URINE SLIGHTLY-CLOUDY; BILIRUBIN,URINE NEGATIVE (NEGATIVE); COLOR,URINE YELLOW; GLUCOSE, URINE NEGATIVE (NEGATIVE); KETONES,URINE NEGATIVE (NEGATIVE); LEUKOCYTE ESTERASE,URINE TRACE (NEGATIVE); NITRITE,URINE NEGATIVE (NEGATIVE); PROTEIN,URINE 30 mg/dL (NEGATIVE); URINE SPECIFIC GRAVITY 1.018; UROBILINOGEN,URINE NEGATIVE mg/dL (<2.0)
[2017-11-28 13:03] VITALS: BP 108/65
--- NOTE | 2017-11-28 20:53 | EKG REPORT ---
SEVERITY:- ABNORMAL ECG - SINUS RHYTHM : Confirmed by: Idania Leon 28-Nov-2017 20:53:24
== END 2017-11-28 13:21 | disposition home or self-care (01) ==
LOC: ER 08:37
DX: R41.0 Disorientation, unspecified (principal); G30.9 Alzheimer's disease, unspecified; F02.80 Dementia in other diseases classified elsewhere, unspecified severity, without behavioral disturbance, psychotic disturbance, mood disturbance, and anxiety; Z88.2 Allergy status to sulfonamides; Z88.1 Allergy status to other antibiotic agents; I10 Essential (primary) hypertension
CPT/HCPCS: 36415; 70450; 71045; 80053; 81001; 82803; 83605; 85025; 85610; 87040; 87086; 87088; 93005; 93010; 99285

== ENCOUNTER 2017-12-08 10:57 | Inpatient (IN) | payer MEDICARE, MEDICAID ==
[2017-12-08] MEDS ORDERED: NORMAL SALINE 1000 ML 1,000 ML IV ONE ×2 (11:27→12:43)
--- NOTE | 2017-12-08 11:32 | ER Document Report ---
ED General - General Chief Complaint: Low Blood Pressure Stated Complaint: ALTERED MENTAL STATUS Time Seen by Provider: 12/08/17 11:08 Notes: 67-year-old male patient residing in a nursing facility to emergency department for altered mental status. Apparently worse history of severe dementia. Was found to be hypotensive and hypothermic. Rectal temperature of 96. Blood pressure was reportedly "low". TRAVEL OUTSIDE OF THE [place] IN LAST 30 DAYS: No - HPI Onset: Just prior to arrival - Related Data Allergies/Adverse Reactions: Sulfa (Sulfonamide Antibiotics) Allergy (Verified 12/08/17 11:58) trimethoprim [From Bactrim] Allergy (Verified 12/08/17 11:58) Past Medical History - General Information source: Outside Facility Records Cannot obtain history due to: Dementia - Social History Smoking Status: Unknown if Ever Smoked Frequency of alcohol use: None Lives with: Longterm Family History: None, Reviewed & Not Pertinent - Past Medical History Cardiac Medical History: Reports: Hx Hypercholesterolemia, Hx Hypertension Endocrine Medical History: Reports: Hx Diabetes Mellitus Type 2 Renal/ Medical History: Denies: Hx Peritoneal Dialysis Psychiatric Medical History: Reports: Hx Dementia - Immunizations Immunizations up to date: No Hx Diphtheria, Pertussis, Tetanus Vaccination: Yes - unknown Hx Pneumococcal Vaccination: 08/08/14 Review of Systems - Review of Systems -: Yes ROS unobtainable due to patient's medical condition Physical Exam - Vital signs Vitals: Pulse Ox 98 12/08/17 11:06 Interpretation: Normal - General General appearance: Lethargic In distress: None - HEENT Head: Normocephalic, Atraumatic Eyes: Normal Pupils: PERRL - Respiratory Respiratory status: No respiratory distress Chest status: Nontender Breath sounds: Normal Chest palpation: Normal - Cardiovascular Rhythm: Regular Heart sounds: Normal auscultation Murmur: No - Abdominal Inspection: Normal Distension: No distension Bowel sounds: Normal Tenderness: Nontender Organomegaly: No organomegaly - Back Back: Normal, Nontender - Extremities General upper extremity: Normal inspection, Nontender, Normal color, Normal ROM , Normal temperature General lower extremity: Normal inspection, Nontender, Edema, Normal color, Normal ROM, Normal temperature, Normal weight bearing. No: Otoniel's sign - Neurological Cognition: Short term memory loss Speech: Dysarthria Notes: Contractions bilaterally - Skin Skin Temperature: Warm Skin Moisture: Dry Skin Color: Normal Course - Re-evaluation Re-evalutation: 12/08/17 11:31 Patient nonverbal coming from detention with reportedly hypotension and hypothermia. Will get labs, lactic acid, blood cultures, fluid bolus, evaluation and reassessment. 12/08/17 13:17 Consulted hospitalist. Will get a CT scan of the chest to look for possible aspiration based on his history. Mid to the hospitalist at this time - Vital Signs Vital signs: Temp Pulse Resp BP Pulse Ox 96.3 F L 16 113/72 100 12/08/17 11:31 12/08/17 13:01 12/08/17 13:00 12/08/17 13:01 - Laboratory Result Diagrams: 12/08/17 11:06 12/08/17 11:06 Laboratory results interpreted by me: 12/08/17 12/08/17 12/08/17 11:06 11:06 11:06 RBC 4.08 L Hgb 11.7 L Hct 36.1 L VBG pH Sodium 146.5 H Chloride 114 H Carbon Dioxide 20 L Lactic Acid 2.3 H 12/08/17 11:06 RBC Hgb Hct VBG pH 7.22 L Sodium Chloride Carbon Dioxide Lactic Acid Discharge - Discharge Clinical Impression: Lactic acidosis Altered mental status Qualifiers: Altered mental status type: unspecified Qualified Code(s): R41.82 - Altered mental status, unspecified Disposition: ADMITTED INPATIENT Admitting Provider: Hospitalist - [place] Unit Admitted: [facility]
[2017-12-08 11:36] LABS: VENOUS BLOOD HCO3 23.4 mmol/L (20-32); VENOUS BLOOD PCO2 58.6 mmHg (35-63); VENOUS BLOOD PH 7.22 (7.30-7.42)
[2017-12-08 11:47] LABS: ABSOLUTE EOSINOPHILS # (AUTO) 0.2 10^3/uL (0.0-0.6); ABSOLUTE LYMPHOCYTES (AUTO) 1.8 10^3/uL (0.5-4.7); ABSOLUTE MONOCYTES (AUTO) 0.7 10^3/uL (0.1-1.4); ABSOLUTE NEUT (AUTO) 5.3 10^3/uL (1.7-8.2); BASOPHILS % (AUTO) 0.2 % (0-2); HEMATOCRIT 36.1 % (37.9-51.0); HEMOGLOBIN 11.7 g/dL (13.5-17.0); LYMPHOCYTES % (AUTO) 22.4 % (13-45); MEAN CORPUSCULAR HEMOGLOBIN 28.6 pg (27.0-33.4); MEAN CORPUSCULAR HGB CONC 32.4 g/dL (32.0-36.0); MEAN CORPUSCULAR VOLUME 88 fl (80-97); MONOCYTES % (AUTO) 8.5 % (3-13); PLATELET COUNT 166 10^3/uL (150-450); RED BLOOD COUNT 4.08 10^6/uL (4.35-5.55); SEGMENTED NEUTROPHILS % (AUTO) 65.9 % (42-78); TOTAL CELLS COUNTED % (AUTO) 100 %
[2017-12-08 11:54] LABS: APPEARANCE,URINE SLIGHTLY-CLOUDY; BILIRUBIN,URINE NEGATIVE (NEGATIVE); COLOR,URINE YELLOW; GLUCOSE, URINE NEGATIVE (NEGATIVE); KETONES,URINE NEGATIVE (NEGATIVE); LEUKOCYTE ESTERASE,URINE NEGATIVE (NEGATIVE); NITRITE,URINE NEGATIVE (NEGATIVE); PROTEIN,URINE NEGATIVE (NEGATIVE); URINE SPECIFIC GRAVITY 1.011; UROBILINOGEN,URINE NEGATIVE mg/dL (<2.0)
[2017-12-08 11:55] LABS: ALANINE AMINOTRANSFERASE 25 U/L (21-72); ALBUMIN 3.9 g/dL (3.5-5.0); ALKALINE PHOSPHATASE 57 U/L (38-126); ANION GAP 13 (5-19); ASPARTATE AMINO TRANSFERASE 22 U/L (17-59); BILIRUBIN,DIRECT 0.1 mg/dL (0.0-0.4); BILIRUBIN,TOTAL 0.2 mg/dL (0.2-1.3); BLOOD UREA NITROGEN 17 mg/dL (7-20); CALCIUM 8.7 mg/dL (8.4-10.2); CARBON DIOXIDE 20 mmol/L (22-30); CHLORIDE 114 mmol/L (98-107); GLUCOSE 107 mg/dL (75-110); SODIUM 146.5 mmol/L (137-145); TOTAL PROTEIN 6.3 g/dL (6.3-8.2)
--- NOTE | 2017-12-08 12:57 | RADIOLOGY REPORT (SQ) ---
EXAM DESCRIPTION: CHEST SINGLE VIEW COMPLETED DATE/TIME: 12/08/2017 12:50 pm REASON FOR STUDY: altered, hypothermic COMPARISON: 11/28/2017 EXAM PARAMETERS: NUMBER OF VIEWS: One view. TECHNIQUE: Single frontal radiographic view of the chest acquired. RADIATION DOSE: NA LIMITATIONS: None. FINDINGS: LUNGS AND PLEURA: No opacities, masses or pneumothorax. No pleural effusion. MEDIASTINUM AND HILAR STRUCTURES: No masses. Contour normal. HEART AND VASCULAR STRUCTURES: Heart normal in size. Normal vasculature. BONES: No acute findings. HARDWARE: None in the chest. OTHER: No other significant finding. IMPRESSION: NO ACUTE RADIOGRAPHIC FINDING IN THE CHEST. TECHNICAL DOCUMENTATION: JOB ID: [id number] [employer]- All Rights Reserved
[2017-12-08] MEDS ORDERED: ONDANSETRON HCL INJ/PF 4 MG/2 ML SDV IV PRN (13:35)
[2017-12-08] MEDS ORDERED: DEXTROSE 5%-NORMAL SALINE 1,000 ML IV PRN (13:35)
[2017-12-08] MEDS ORDERED: DEXTROSE 5%-1/2 NORMAL SALINE 1,000 ML IV PRN (13:52)
--- NOTE | 2017-12-08 13:52 | EKG REPORT ---
SEVERITY:- ABNORMAL ECG - SINUS RHYTHM : Confirmed by: Jose Antonio Hopkins MD 08-Dec-2017 13:52:08
--- NOTE | 2017-12-08 14:21 | PDOC H&P ---
History of Present Illness Admission Date/PCP: 12/08/17 13:34 Patient is a resident of the [facility] Patient complains of: Altered History of Present Illness: LISA CHOE is a 67 year old male with a history of advanced dementia with aggressive behavior, nonverbal, hypertension here from his facility after patient had a change in his behavior. Patient was in his usual state until today. She began acting differently. He was found to be hypotensive with systolic blood pressures of 70/54 he was given fluids by the EMS and blood pressures came up to 112/76. Patient was given another fluid bolus in the ED. Patient chest x-ray was negative. UA was negative. Chemistry was fairly normal although it does show some mild hypernatremia and hyperchloremia patient does have some mild metabolic acidosis. He did have some lactic acidosis with a lactate of 2.3. Patient's CBC appears fairly stable. Patient was hypothermic. Upon reviewing patient records he was noted to have a similar presentation in the past however at that time he had an infection. Hospitalist was called to observe patient for possible sepsis and for IV fluids. Past Medical History Cardiac Medical History: Reports: Hyperlipidema, Hypertension Endocrine Medical History: Reports: Diabetes Mellitus Type 2 Psychiatric Medical History: Reports: Dementia Social History Lives with: Alf Smoking Status: Unknown if Ever Smoked - Advance Directive Resuscitation Status: Full Code Family History Family History: None, Reviewed & Not Pertinent, Other - Unable to obtain due to patient's mentation Parental Family History Reviewed: No Children Family History Reviewed: Unknown Sibling(s) Family History Reviewed.: Unknown Medication/Allergy Allergies/Adverse Reactions: Sulfa (Sulfonamide Antibiotics) Allergy (Verified 12/08/17 11:58) trimethoprim [From Bactrim] Allergy (Verified 12/08/17 11:58) Review of Systems ROS unobtainable: Due to mental status Constitutional: ABSENT: chills, fever(s), headache(s), weight gain, weight loss Eyes: ABSENT: visual disturbances Ears: ABSENT: hearing changes Cardiovascular: ABSENT: chest pain, dyspnea on exertion, edema, orthropnea, palpitations Respiratory: ABSENT: cough, hemoptysis Gastrointestinal: ABSENT: abdominal pain, constipation, diarrhea, hematemesis, hematochezia, nausea, vomiting Genitourinary: ABSENT: dysuria, hematuria Musculoskeletal: ABSENT: joint swelling Integumentary: ABSENT: rash, wounds Neurological: ABSENT: abnormal gait, abnormal speech, confusion, dizziness, focal weakness, syncope Psychiatric: ABSENT: anxiety, depression, homidical ideation, suicidal ideation Endocrine: ABSENT: cold intolerance, heat intolerance, polydipsia, polyuria Hematologic/Lymphatic: ABSENT: easy bleeding, easy bruising Physical Exam Vital Signs: Temp Pulse Resp BP Pulse Ox 96.7 F L 16 113/72 100 12/08/17 13:05 12/08/17 13:01 12/08/17 13:00 12/08/17 13:01 General appearance: PRESENT: well-developed, well-nourished Head exam: PRESENT: normocephalic Eye exam: ABSENT: scleral icterus Ear exam: PRESENT: normal external ear exam Mouth exam: PRESENT: dry mucosa Neck exam: ABSENT: carotid bruit, JVD, lymphadenopathy, thyromegaly Respiratory exam: PRESENT: clear to auscultation sonia. ABSENT: rales, rhonchi, wheezes Cardiovascular exam: PRESENT: RRR. ABSENT: diastolic murmur, rubs, systolic murmur Pulses: PRESENT: normal dorsalis pedis pul Vascular exam: PRESENT: normal capillary refill GI/Abdominal exam: PRESENT: normal bowel sounds, soft. ABSENT: distended, guarding, mass, organolmegaly, rebound, tenderness Rectal exam: PRESENT: deferred Extremities exam: ABSENT: calf tenderness, clubbing, pedal edema Neurological exam: PRESENT: altered. ABSENT: motor sensory deficit Psychiatric exam: ABSENT: homicidal ideation, suicidal ideation Skin exam: PRESENT: dry, intact, warm. ABSENT: cyanosis, rash Results Laboratory Results: 12/08/17 12/08/17 12/08/17 11:06 11:06 11:06 WBC 8.0 RBC 4.08 L Hgb 11.7 L Hct 36.1 L MCV 88 MCH 28.6 MCHC 32.4 RDW 14.0 Plt Count 166 Seg Neutrophils % 65.9 Lymphocytes % 22.4 Monocytes % 8.5 Eosinophils % 3.0 Basophils % 0.2 Absolute Neutrophils 5.3 Absolute Lymphocytes 1.8 Absolute Monocytes 0.7 Absolute Eosinophils 0.2 Absolute Basophils 0.0 VBG pH VBG pCO2 VBG HCO3 VBG Base Excess Sodium 146.5 H Potassium 4.0 Chloride 114 H Carbon Dioxide 20 L Anion Gap 13 BUN 17 Creatinine 1.08 Est GFR ( Amer) > 60 Est GFR (Non-Af Amer) > 60 Glucose 107 POC Glucose Lactic Acid 2.3 H Calcium 8.7 Total Bilirubin 0.2 Direct Bilirubin 0.1 AST 22 ALT 25 Alkaline Phosphatase 57 Troponin I Total Protein 6.3 Albumin 3.9 Urine Color Urine Appearance Urine pH Ur Specific [place] Urine Protein Urine Glucose (UA) Urine Ketones Urine Blood Urine Nitrite Urine Bilirubin Urine Urobilinogen Urine WBC (Auto) Urine RBC (Auto) U Hyaline Cast (Auto) Urine Bacteria (Auto) Squamous Epi Cells Auto Urine Mucus (Auto) Urine Ascorbic Acid 12/08/17 12/08/17 12/08/17 11:06 11:06 11:07 WBC RBC Hgb Hct MCV MCH MCHC RDW Plt Count Seg Neutrophils % Lymphocytes % Monocytes % Eosinophils % Basophils % Absolute Neutrophils Absolute Lymphocytes Absolute Monocytes Absolute Eosinophils Absolute Basophils VBG pH 7.22 L VBG pCO2 58.6 VBG HCO3 23.4 VBG Base Excess -5.0 Sodium Potassium Chloride Carbon Dioxide Anion Gap BUN Creatinine Est GFR ( Amer) Est GFR (Non-Af Amer) Glucose POC Glucose 109 Lactic Acid Calcium Total Bilirubin Direct Bilirubin AST ALT Alkaline Phosphatase Troponin I < 0.012 Total Protein Albumin Urine Color Urine Appearance Urine pH Ur Specific [place] Urine Protein Urine Glucose (UA) Urine Ketones Urine Blood Urine Nitrite Urine Bilirubin Urine Urobilinogen Urine WBC (Auto) Urine RBC (Auto) U Hyaline Cast (Auto) Urine Bacteria (Auto) Squamous Epi Cells Auto Urine Mucus (Auto) Urine Ascorbic Acid 12/08/17 11:27 WBC RBC Hgb Hct MCV MCH MCHC RDW Plt Count Seg Neutrophils % Lymphocytes % Monocytes % Eosinophils % Basophils % Absolute Neutrophils Absolute Lymphocytes Absolute Monocytes Absolute Eosinophils Absolute Basophils VBG pH VBG pCO2 VBG HCO3 VBG Base Excess Sodium Potassium Chloride Carbon Dioxide Anion Gap BUN Creatinine Est GFR ( Amer) Est GFR (Non-Af Amer) Glucose POC Glucose Lactic Acid Calcium Total Bilirubin Direct Bilirubin AST ALT Alkaline Phosphatase Troponin I Total Protein Albumin Urine Color YELLOW Urine Appearance SLIGHTLY-CLOUDY Urine pH 7.0 Ur Specific [place] 1.011 Urine Protein NEGATIVE Urine Glucose (UA) NEGATIVE Urine Ketones NEGATIVE Urine Blood NEGATIVE Urine Nitrite NEGATIVE Urine Bilirubin NEGATIVE Urine Urobilinogen NEGATIVE Urine WBC (Auto) 2 Urine RBC (Auto) 1 U Hyaline Cast (Auto) 12 Urine Bacteria (Auto) 3+ Squamous Epi Cells Auto 1 Urine Mucus (Auto) RARE Urine Ascorbic Acid NEGATIVE Impressions: Chest X-Ray 12/08/17 12:32 IMPRESSION: NO ACUTE RADIOGRAPHIC FINDING IN THE CHEST. Assessment & Plan - Diagnosis (1) Metabolic encephalopathy Is this a current diagnosis for this admission?: Yes Plan: With change in mentation. This could be due to acute infection or other etiology. Also could be medication induced as patient is on psychotropic drugs. This could have also be due to syncope as patient blood pressure was 70/ 54. Patient was given IV fluids. Patient is being worked up for sepsis. Patient is afebrile without leukocytosis therefore no antibiotics will be started at this time. (2) Dehydration Plan: Patient with hypernatremia been due to boluses however patient also has metabolic acidosis. Lactic acidosis. This could be secondary to dehydration. Patient receiving IV fluids. D5 half-normal saline as patient is hypernatremic and hyperchloremic. Will follow-up labs in a.m. (3) Hypotension Is this a current diagnosis for this admission?: Yes Plan: Patient apparently has history of hypertension as patient was on metoprolol 50 mg p.o. twice daily. This medication is being held at this time as patient is hypotensive. His medication be can be resumed at a lower dose once patient blood pressures are appropriate. (4) Hypothermia Is this a current diagnosis for this admission?: Yes Plan: Patient was found to be hypothermic rectal temperature is 96.7. Patient is currently being worked up for possible infection. Patient is currently being bundled and temperature will be rechecked later on. Also check patient TSH as patient does have a history of hypothyroidism. Will make sure patient is receiving adequate replacement. (5) Dementia Qualifiers: Dementia type: Alzheimer's disease Alzheimer's disease onset: late-onset Dementia behavioral disturbance: without behavioral disturbance Qualified Code (s): G30.1 - Alzheimer's disease with late onset; F02.80 - Dementia in other diseases classified elsewhere without behavioral disturbance; F02.80 - Dementia in other diseases classified elsewhere without behavioral disturbance; F02.80 - Dementia in other diseases classified elsewhere without behavioral disturbance Is this a current diagnosis for this admission?: Yes Plan: Patient with advanced dementia. Patient is actually nonverbal. Patient goes from bed to wheelchair and back to bed. Patient lives at the [facility]. Resume patient's medications once his medical condition improves. (6) Hypothyroid Qualifiers: Hypothyroidism type: acquired Qualified Code(s): E03.9 - Hypothyroidism, unspecified Is this a current diagnosis for this admission?: Yes Plan: Patient is on thyroid supplement. Check T4. Resume patient's medications once mentation improves. - Time Time Spent: 30 to 50 Minutes Anticipated discharge: SNF Within: Other - Inpatient Certification Medical Necessity: Need For IV Fluids
--- NOTE | 2017-12-08 14:29 | RADIOLOGY REPORT (SQ) ---
EXAM DESCRIPTION: CT CHEST WITHOUT COMPLETED DATE/TIME: 12/08/2017 1:58 pm REASON FOR STUDY: possible aspiration COMPARISON: CT angio chest 07/25/2014 TECHNIQUE: CT scan performed of the chest without intravenous contrast. Images reviewed with lung, soft tissue and bone windows. Reconstructed coronal and sagittal MPR images reviewed. All images st ored on PACS. All CT scanners at this facility use dose modulation, iterative reconstruction, and/or weight based d osing when appropriate to reduce radiation dose to as low as reasonably achievable (ALARA). [facility]: Dose Right [facility]: CareDose [facility]: Dose Right [facility]: Teradose 4D [facility]: Tagoo RADIATION DOSE: CT Rad equipment meets quality standard of care and radiation dose reduction techniq ues were employed. CTDIvol: 15.6 mGy. DLP: 550 mGy-cm. mGy. LIMITATIONS: No technical limitations. FINDINGS: LUNGS AND PLEURA: Bibasilar atelectasis. No fluffy alveolar infiltrates worrisome for [place] or pneumonia. No pleural effusion. No pneumothorax. HILAR AND MEDIASTINAL STRUCTURES: No identified masses or abnormal nodes. No obvious aneurysm. HEART AND VASCULAR STRUCTURES: Heavily calcified coronary arteries. No cardiomegaly. No pericardial effusion. UPPER ABDOMEN: No significant findings. Limited exam. THYROID AND OTHER SOFT TISSUES: No masses. No adenopathy. BONES: No significant finding. HARDWARE: None in the chest. OTHER: No other significant findings. IMPRESSION: Minimal bibasilar atelectasis in the posterior costophrenic sulci TECHNICAL DOCUMENTATION: JOB ID: [id number] Quality ID # [id number]: Final reports with documentation of one or more dose reduction techniques (e.g., Au tomated exposure control, adjustment of the mA and/or kV according to patient size, use of iterative reconstruction technique) 2010 [employer]- All Rights Reserved
[2017-12-08] MEDS: PANTOPRAZOLE SODIUM 40 MG VIAL IV SCH (22:51)
[2017-12-09 03:46] LABS: HEMATOCRIT 34.3 % (37.9-51.0); HEMOGLOBIN 11.4 g/dL (13.5-17.0); MEAN CORPUSCULAR HEMOGLOBIN 28.8 pg (27.0-33.4); MEAN CORPUSCULAR HGB CONC 33.2 g/dL (32.0-36.0); MEAN CORPUSCULAR VOLUME 87 fl (80-97); PLATELET COUNT 138 10^3/uL (150-450); RED BLOOD COUNT 3.95 10^6/uL (4.35-5.55); RED CELL DISTRIBUTION WIDTH 14.1 % (11.5-14.0); WHITE BLOOD COUNT 8.4 10^3/uL (4.0-10.5)
[2017-12-09 04:02] LABS: ANION GAP 10 (5-19); BLOOD UREA NITROGEN 12 mg/dL (7-20); CALCIUM 8.8 mg/dL (8.4-10.2); CARBON DIOXIDE 19 mmol/L (22-30); CHLORIDE 115 mmol/L (98-107); GLUCOSE 109 mg/dL (75-110); POTASSIUM 3.4 mmol/L (3.6-5.0); SODIUM 144.1 mmol/L (137-145)
[2017-12-09] MEDS ORDERED: ONDANSETRON HCL INJ/PF 4 MG/2 ML SDV IV PRN (07:30)
[2017-12-09] MEDS ORDERED: POTASSIUM CHLORIDE 10 MEQ TABLET.SA PO ONE (07:45)
[2017-12-09] MEDS ORDERED: POTASSIUM CHLORIDE 20 MEQ/15 ML UDCUP PO ONE (09:00)
--- NOTE | 2017-12-09 09:05 | RADIOLOGY REPORT (SQ) ---
EXAM DESCRIPTION: CHEST SINGLE VIEW COMPLETED DATE/TIME: 12/09/2017 8:11 am REASON FOR STUDY: Aspiration COMPARISON: None. EXAM PARAMETERS: NUMBER OF VIEWS: One view. TECHNIQUE: Single frontal radiographic view of the chest acquired. RADIATION DOSE: NA LIMITATIONS: None. FINDINGS: LUNGS AND PLEURA: There is a nodular density at the left costophrenic angle overlying left anterior 6th rib. The possibility of nipple shadow must be considered. AP upright view with nipple markers could be useful. MEDIASTINUM AND HILAR STRUCTURES: No masses. Contour normal. HEART AND VASCULAR STRUCTURES: Normal heart size with aortic atherosclerosis. Pulmonary vasculature is normal. . BONES: No acute findings. HARDWARE: None in the chest. OTHER: No other significant finding. IMPRESSION: Probable nipple shadow left lung base. Otherwise, no acute disease. TECHNICAL DOCUMENTATION: JOB ID: [id number] 2010 [employer]- All Rights Reserved
[2017-12-09] MEDS: PANTOPRAZOLE SODIUM 40 MG VIAL IV SCH ×2 (09:17→22:18)
[2017-12-09] MEDS ORDERED: INFLUENZA ADLT QUAD (36MOS+) 2017-18 VAC 0.5 ML SYR IM PRN (16:26)
--- NOTE | 2017-12-09 17:00 | PDOC PROGRESS REPORT ---
Subjective Progress Note for:: 12/09/17 Subjective:: Unable to obtain due to patient's mental status Review of systems Unable to obtain due to mental status All significant laboratories and diagnostics have been reviewed Reason For Visit: METABOLIC ENCEPHALOPATHY,HYPOTHERMIA,HYPOTENSION Physical Exam Vital Signs: Temp Pulse Resp BP Pulse Ox 98.3 F 91 18 145/88 H 100 12/09/17 16:27 12/09/17 16:27 12/09/17 16:27 12/09/17 16:27 12/09/17 16:27 Intake & Output 12/08/17 12/09/17 12/10/17 06:59 06:59 06:59 Intake Total 665 Output Total 100 500 Balance 565 -500 Weight 71.8 kg General appearance: PRESENT: no acute distress, cooperative, thin Head exam: PRESENT: atraumatic, normocephalic Eye exam: PRESENT: conjunctiva pink, EOMI, PERRLA Ear exam: PRESENT: normal external ear exam Mouth exam: PRESENT: moist Neck exam: PRESENT: full ROM. ABSENT: JVD, lymphadenopathy, tenderness Respiratory exam: PRESENT: clear to auscultation sonia Cardiovascular exam: PRESENT: RRR. ABSENT: diastolic murmur, systolic murmur Vascular exam: PRESENT: normal capillary refill GI/Abdominal exam: PRESENT: normal bowel sounds, soft. ABSENT: tenderness Extremities exam: ABSENT: full ROM, pedal edema Musculoskeletal exam: ABSENT: ambulatory Neurological exam: PRESENT: awake, other - Nonverbal Skin exam: PRESENT: intact, normal color Results Laboratory Results: 12/09/17 03:15 12/09/17 03:15 12/08/17 12/08/17 12/09/17 17:35 17:35 03:15 WBC 8.4 RBC 3.95 L Hgb 11.4 L Hct 34.3 L MCV 87 MCH 28.8 MCHC 33.2 RDW 14.1 H Plt Count 138 L Sodium Potassium Chloride Carbon Dioxide Anion Gap BUN Creatinine Est GFR ( Amer) Est GFR (Non-Af Amer) Glucose Lactic Acid 1.0 Calcium Magnesium Ammonia 17.1 12/09/17 03:15 WBC RBC Hgb Hct MCV MCH MCHC RDW Plt Count Sodium 144.1 Potassium 3.4 L Chloride 115 H Carbon Dioxide 19 L Anion Gap 10 BUN 12 Creatinine 0.92 Est GFR ( Amer) > 60 Est GFR (Non-Af Amer) > 60 Glucose 109 Lactic Acid Calcium 8.8 Magnesium 1.8 Ammonia 12/08/17 12/08/17 12/09/17 14:19 20:47 03:15 Troponin I < 0.012 < 0.012 < 0.012 Impressions: Chest CT 12/08/17 13:14 IMPRESSION: Minimal bibasilar atelectasis in the posterior costophrenic sulci Chest X-Ray 12/09/17 06:00 IMPRESSION: Probable nipple shadow left lung base. Otherwise, no acute disease. Assessment & Plan - Diagnosis (1) Hypotension Qualifiers: Hypotension type: unspecified hypotension type Qualified Code(s): I95.9 - Hypotension, unspecified Is this a current diagnosis for this admission?: Yes Plan: Resolved (2) Hypothermia Qualifiers: Encounter type: subsequent encounter Qualified Code(s): T68.XXXD - Hypothermia, subsequent encounter Is this a current diagnosis for this admission?: Yes Plan: Resolved (3) Lactic acidosis Is this a current diagnosis for this admission?: Yes Plan: Resolved (4) Dementia Qualifiers: Dementia type: Alzheimer's disease Alzheimer's disease onset: late-onset Dementia behavioral disturbance: without behavioral disturbance Qualified Code (s): G30.1 - Alzheimer's disease with late onset; F02.80 - Dementia in other diseases classified elsewhere without behavioral disturbance; F02.80 - Dementia in other diseases classified elsewhere without behavioral disturbance; F02.80 - Dementia in other diseases classified elsewhere without behavioral disturbance Is this a current diagnosis for this admission?: Yes Plan: Stable. Consult speech therapy to evaluate swallowing (5) Hypokalemia Is this a current diagnosis for this admission?: Yes Plan: Replace through IV and trend (6) UTI (urinary tract infection) Qualifiers: Urinary tract infection type: acute cystitis Hematuria presence: without hematuria Qualified Code(s): N30.00 - Acute cystitis without hematuria Is this a current diagnosis for this admission?: Yes Plan: Urine culture growing higher than 100,000 colonies of group B strep. To place patient on Pen-VK - Time Time Spent with patient: 15-24 minutes Medications reviewed and adjusted accordingly: Yes Anticipated discharge: SNF Within: within 24 hours - Inpatient Certification Based on my medical assessment, after consideration of the patient's comorbidities, presenting symptoms, or acuity I expect that the services needed warrant INPATIENT care.: Yes I certify that my determination is in accordance with my understanding of Medicare's requirements for reasonable and necessary INPATIENT services [42 CFR 412.3e].: Yes Medical Necessity: Need Close Monitoring Due to Risk of Patient Decompensation, Need For IV Fluids
[2017-12-09] MEDS: POTASSI CL 40 MEQ/NS 1L 1,000 ML IV PRN (17:55)
[2017-12-09] MEDS ORDERED: (PENDING PHARMACY ID) (Benztropine Mesylate [Benztropine Mesylate 0.5 Mg Tablet] 0.5 MG) PO SCH (22:00)
[2017-12-09] MEDS ORDERED: (PENDING PHARMACY ID) (Donepezil Hcl [Aricept] 10 MG) PO SCH (22:00)
[2017-12-09] MEDS: DONEPEZIL HCL 5 MG TABLET PO SCH (22:18)
[2017-12-09] MEDS: BENZTROPINE MESYLATE 1 MG TABLET PO SCH (22:18)
[2017-12-09] MEDS: PENICILLIN V POTASSIUM 500 MG TABLET PO SCH (22:18)
[2017-12-10 05:51] LABS: ABSOLUTE EOSINOPHILS # (AUTO) 0.2 10^3/uL (0.0-0.6); ABSOLUTE LYMPHOCYTES (AUTO) 2.5 10^3/uL (0.5-4.7); ABSOLUTE MONOCYTES (AUTO) 0.8 10^3/uL (0.1-1.4); ABSOLUTE NEUT (AUTO) 4.3 10^3/uL (1.7-8.2); BASOPHILS % (AUTO) 0.2 % (0-2); EOSINOPHILS % (AUTO) 2.3 % (0-6); HEMATOCRIT 33.9 % (37.9-51.0); HEMOGLOBIN 11.4 g/dL (13.5-17.0); LYMPHOCYTES % (AUTO) 31.9 % (13-45); MEAN CORPUSCULAR HGB CONC 33.6 g/dL (32.0-36.0); MEAN CORPUSCULAR VOLUME 86 fl (80-97); PLATELET COUNT 155 10^3/uL (150-450); RED BLOOD COUNT 3.93 10^6/uL (4.35-5.55); RED CELL DISTRIBUTION WIDTH 14.3 % (11.5-14.0); SEGMENTED NEUTROPHILS % (AUTO) 55.6 % (42-78); TOTAL CELLS COUNTED % (AUTO) 100 %; WHITE BLOOD COUNT 7.8 10^3/uL (4.0-10.5)
[2017-12-10] MEDS: POTASSI CL 40 MEQ/NS 1L 1,000 ML IV PRN (05:55)
[2017-12-10 06:00] LABS: ANION GAP 9 (5-19); BLOOD UREA NITROGEN 11 mg/dL (7-20); CALCIUM 8.9 mg/dL (8.4-10.2); CARBON DIOXIDE 18 mmol/L (22-30); CHLORIDE 118 mmol/L (98-107); GLUCOSE 84 mg/dL (75-110); SODIUM 145.3 mmol/L (137-145)
[2017-12-10] MEDS ORDERED: (PENDING PHARMACY ID) (Sertraline Hcl [Zoloft] 25 MG) PO SCH (10:00)
[2017-12-10] MEDS ORDERED: (PENDING PHARMACY ID) (Memantine Hcl [Namenda Xr] 14 MG) PO SCH (10:00)
[2017-12-10] MEDS: PENICILLIN V POTASSIUM 500 MG TABLET PO SCH ×2 (14:13→22:50)
[2017-12-10] MEDS: BENZTROPINE MESYLATE 1 MG TABLET PO SCH ×2 (14:13→22:50)
[2017-12-10] MEDS: SERTRALINE HCL 50 MG TABLET PO SCH (14:14)
[2017-12-10] MEDS: PANTOPRAZOLE SODIUM 40 MG VIAL IV SCH ×2 (14:14→22:50)
[2017-12-10] MEDS: DEXTROSE 5%-WATER 1000 ML 1,000 ML IV PRN (14:15)
--- NOTE | 2017-12-10 14:58 | PDOC PROGRESS REPORT ---
Subjective Progress Note for:: 12/10/17 Subjective:: Unable to obtain due to patient's mental status Review of systems Unable to obtain due to mental status All significant laboratories and diagnostics have been reviewed Reason For Visit: METABOLIC ENCEPHALOPATHY,HYPOTHERMIA,HYPOTENSION Physical Exam Vital Signs: Temp Pulse Resp BP Pulse Ox 98.0 F 84 18 138/80 H 99 12/10/17 04:37 12/10/17 04:37 12/10/17 04:37 12/10/17 04:37 12/10/17 04:37 Intake & Output 12/09/17 12/10/17 12/11/17 06:59 06:59 06:59 Intake Total 1148 Output Total 700 Balance 448 Weight 72.3 kg General appearance: PRESENT: no acute distress, cooperative, thin Head exam: PRESENT: atraumatic, normocephalic Eye exam: PRESENT: conjunctiva pink, EOMI, PERRLA Ear exam: PRESENT: normal external ear exam Mouth exam: PRESENT: moist Neck exam: PRESENT: full ROM. ABSENT: JVD, lymphadenopathy, tenderness Respiratory exam: PRESENT: clear to auscultation sonia Cardiovascular exam: PRESENT: RRR. ABSENT: diastolic murmur, systolic murmur Vascular exam: PRESENT: normal capillary refill GI/Abdominal exam: PRESENT: normal bowel sounds, soft. ABSENT: tenderness Extremities exam: PRESENT: full ROM. ABSENT: pedal edema Musculoskeletal exam: ABSENT: ambulatory Neurological exam: PRESENT: alert, awake, oriented to place, CN II-XII grossly intact. ABSENT: oriented to person, oriented to time, oriented to situation Psychiatric exam: ABSENT: appropriate affect, normal mood Skin exam: PRESENT: intact, normal color Results Laboratory Results: 12/10/17 04:48 12/10/17 04:48 12/10/17 12/10/17 04:48 04:48 WBC 7.8 RBC 3.93 L Hgb 11.4 L Hct 33.9 L MCV 86 MCH 29.0 MCHC 33.6 RDW 14.3 H Plt Count 155 Seg Neutrophils % 55.6 Lymphocytes % 31.9 Monocytes % 10.0 Eosinophils % 2.3 Basophils % 0.2 Absolute Neutrophils 4.3 Absolute Lymphocytes 2.5 Absolute Monocytes 0.8 Absolute Eosinophils 0.2 Absolute Basophils 0.0 Sodium 145.3 H Potassium 4.0 Chloride 118 H Carbon Dioxide 18 L Anion Gap 9 BUN 11 Creatinine 1.02 Est GFR ( Amer) > 60 Est GFR (Non-Af Amer) > 60 Glucose 84 Calcium 8.9 Magnesium 1.9 Impressions: Chest CT 12/08/17 13:14 IMPRESSION: Minimal bibasilar atelectasis in the posterior costophrenic sulci Chest X-Ray 12/09/17 06:00 IMPRESSION: Probable nipple shadow left lung base. Otherwise, no acute disease. Assessment & Plan - Diagnosis (1) Hypotension Qualifiers: Hypotension type: unspecified hypotension type Qualified Code(s): I95.9 - Hypotension, unspecified Is this a current diagnosis for this admission?: Yes Plan: Resolved (2) Hypothermia Qualifiers: Encounter type: subsequent encounter Qualified Code(s): T68.XXXD - Hypothermia, subsequent encounter Is this a current diagnosis for this admission?: Yes Plan: Resolved (3) Lactic acidosis Is this a current diagnosis for this admission?: Yes Plan: Resolved (4) Dementia Qualifiers: Dementia type: Alzheimer's disease Alzheimer's disease onset: late-onset Dementia behavioral disturbance: without behavioral disturbance Qualified Code (s): G30.1 - Alzheimer's disease with late onset; F02.80 - Dementia in other diseases classified elsewhere without behavioral disturbance; F02.80 - Dementia in other diseases classified elsewhere without behavioral disturbance; F02.80 - Dementia in other diseases classified elsewhere without behavioral disturbance Is this a current diagnosis for this admission?: Yes Plan: Stable. Consult speech therapy to evaluate swallowing. Continue outpatient regimen (5) Hypokalemia Is this a current diagnosis for this admission?: Yes Plan: Replaced (6) UTI (urinary tract infection) Qualifiers: Urinary tract infection type: acute cystitis Hematuria presence: without hematuria Qualified Code(s): N30.00 - Acute cystitis without hematuria Is this a current diagnosis for this admission?: Yes Plan: Continue Pen-Vee K for treatment of Streptococcus group B - Time Time Spent with patient: Less than 15 minutes Medications reviewed and adjusted accordingly: Yes Anticipated discharge: SNF Within: within 24 hours - Inpatient Certification Based on my medical assessment, after consideration of the patient's comorbidities, presenting symptoms, or acuity I expect that the services needed warrant INPATIENT care.: Yes I certify that my determination is in accordance with my understanding of Medicare's requirements for reasonable and necessary INPATIENT services [42 CFR 412.3e].: Yes Medical Necessity: Need Close Monitoring Due to Risk of Patient Decompensation, Need For IV Fluids
[2017-12-10] MEDS: DONEPEZIL HCL 5 MG TABLET PO SCH (22:50)
[2017-12-11] MEDS: DEXTROSE 5%-WATER 1000 ML 1,000 ML IV PRN (05:05)
[2017-12-11] MEDS ORDERED: METOPROLOL SUCCINATE 50 MG TAB.SR.24H PO ONE (11:00)
[2017-12-11] MEDS ORDERED: AMLODIPINE BESYLATE 5 MG TABLET PO ONE (11:00)
--- NOTE | 2017-12-11 11:20 | PDOC DISCHARGE SUMMARY ---
General - Admit/Disc Date/PCP Admission Date/Primary Care Provider: 12/09/17 16:34 Discharge Date: 12/11/17 - Discharge Diagnosis (1) UTI (urinary tract infection) Is this a current diagnosis for this admission?: Yes (2) Hypotension Is this a current diagnosis for this admission?: Yes (3) Hypothermia Is this a current diagnosis for this admission?: Yes (4) Lactic acidosis Is this a current diagnosis for this admission?: Yes (5) Dementia Is this a current diagnosis for this admission?: Yes (6) Hypokalemia Is this a current diagnosis for this admission?: Yes (7) HTN (hypertension) Is this a current diagnosis for this admission?: Yes (8) Metabolic acidosis Is this a current diagnosis for this admission?: Yes - Additional Information Resuscitation Status: Full Code Discharge Diet: As Tolerated Discharge Activity: Activity As Tolerated Home Medications: Benztropine Mesylate [Benztropine Mesylate 0.5 mg Tablet] 0.5 mg PO Q12 Bisacodyl [Bisac-Evac] 10 mg RC ASDIR PRN 12/08/17 Docusate Sodium [Dok] 100 mg PO BID 12/08/17 Donepezil HCl [Aricept] 10 mg PO QHS 12/08/17 Haloperidol [Haldol 5 mg Tablet] 5 mg PO BID 12/08/17 Levothyroxine Sodium [Synthroid 0.025 mg Tablet] 25 mcg PO DAILY 12/08/17 Lorazepam [Ativan 1 mg Tablet] 1 mg PO QHS PRN 12/08/17 Magnesium Hydroxide [Milk of Magnesia] 45 ml PO ASDIR PRN 12/08/17 Memantine HCl [Namenda Xr] 14 mg PO DAILY 12/08/17 Metformin HCl [Glucophage 500 mg Tablet] 500 mg PO QAM 12/08/17 Metoprolol Tartrate [Lopressor 50 mg Tablet] 50 mg PO Q12H 12/08/17 Sennosides/Docusate Sodium [Senna-S Tablet] 1 each PO QHS 12/08/17 Sertraline HCl [Zoloft] 25 mg PO DAILY 12/08/17 Simvastatin [Zocor 40 mg Tablet] 40 mg PO QHS 12/08/17 History of Present Illness History of Present Illness: LISA CHOE is a 67 year old male with a history of advanced dementia with aggressive behavior, nonverbal, hypertension transferred from local facility after patient had a change in his behavior. Patient was in his usual state until the day of admission. He began acting differently. He was found to be hypotensive with systolic blood pressures of 70/54. He was given fluids by the EMS and blood pressures came up to 112/76. Patient was given another fluid bolus in ED. Patient chest x-ray was negative. UA was negative. Chemistry was fairly normal although it did show some mild hypernatremia and hyperchloremia patient with mild metabolic acidosis. He did have mild lactic acidosis with a lactate of 2.3. Patient's CBC appears fairly stable. Patient was hypothermic. Upon reviewing patient records he was noted to have a similar presentation in the past however at that time he had an infection. Hospitalist was called to observe patient for possible sepsis and for IV fluids Hospital Course Hospital Course: Patient was admitted under the hospitalist service. He did not fulfill full criteria for sepsis. Patient was gently hydrated and electrolytes were replaced. Urine culture grew higher than 100,000 colonies of group B strep. Patient was placed on Pen-Vee K 500 mg 1 p.o. every 6 hours.Recommend for patient to stay on these antibiotic for a total of 10 days. On the day of discharge blood pressure was elevated and it was deemed to be due to outpatient not being on beta-tima. We resume medication and ordered one tome dose of Norvasc with further improvement. Since patient had achieved maximum benefit of hospitalization stay prompted to discharge. Physical Exam Vital Signs: Temp Pulse Resp BP Pulse Ox 97.7 F 71 16 170/92 H 100 12/11/17 07:21 12/11/17 07:21 12/11/17 07:21 12/11/17 07:21 12/11/17 07:21 Intake & Output 12/10/17 12/11/17 12/12/17 06:59 06:59 06:59 Intake Total 1148 357 Output Total 700 2100 Balance 448 -1743 Weight 72.3 kg 71.4 kg General appearance: PRESENT: cooperative, well-developed, well-nourished Head exam: PRESENT: atraumatic, normocephalic Eye exam: PRESENT: conjunctiva pink, EOMI, PERRLA Ear exam: PRESENT: normal external ear exam Mouth exam: PRESENT: moist Neck exam: PRESENT: full ROM. ABSENT: JVD, lymphadenopathy, tenderness Respiratory exam: PRESENT: clear to auscultation sonia Cardiovascular exam: PRESENT: RRR. ABSENT: diastolic murmur, systolic murmur Vascular exam: PRESENT: normal capillary refill GI/Abdominal exam: PRESENT: normal bowel sounds, soft. ABSENT: tenderness Extremities exam: PRESENT: full ROM Musculoskeletal exam: ABSENT: ambulatory Neurological exam: PRESENT: alert, awake. ABSENT: oriented to person, oriented to place, oriented to time, oriented to situation, CN II-XII grossly intact Skin exam: PRESENT: intact, normal color Results Laboratory Results: 12/10/17 04:48 12/10/17 04:48 Impressions: Chest CT 12/08/17 13:14 IMPRESSION: Minimal bibasilar atelectasis in the posterior costophrenic sulci Chest X-Ray 12/09/17 06:00 IMPRESSION: Probable nipple shadow left lung base. Otherwise, no acute disease. Qualifiers - * PATEINT BEING DISCHARGED WITH ANY OF THE FOLLOWING DIAGNOSIS?: No Plan Discharge Plan: Transfer to [facility] Time Spent: Less than 30 Minutes
[2017-12-11 11:35] VITALS: BP 144/86
[2017-12-11] MEDS: BENZTROPINE MESYLATE 1 MG TABLET PO SCH (11:38)
[2017-12-11] MEDS: PENICILLIN V POTASSIUM 500 MG TABLET PO SCH ×2 (11:38→16:00)
[2017-12-11] MEDS: SERTRALINE HCL 50 MG TABLET PO SCH (11:38)
== END 2017-12-11 18:25 | DRG 689 ==
LOC: ER 10:57 → INTOOBSV 13:34 → EH 13:34 → 3N 12-09 01:58 → OBSVTOIN 12-09 16:34
PROVIDERS: ADMIT Emergency Medicine; ATTEND Emergency Medicine
DX: N39.0 Urinary tract infection, site not specified (principal); G93.41 Metabolic encephalopathy; E87.0 Hyperosmolality and hypernatremia; E87.2 Acidosis; F03.91 Unspecified dementia, unspecified severity, with behavioral disturbance; E03.9 Hypothyroidism, unspecified; E86.0 Dehydration; I10 Essential (primary) hypertension; I95.9 Hypotension, unspecified; E87.8 Other disorders of electrolyte and fluid balance, not elsewhere classified; R68.0 Hypothermia, not associated with low environmental temperature; B95.1 Streptococcus, group B, as the cause of diseases classified elsewhere; E78.5 Hyperlipidemia, unspecified; E11.9 Type 2 diabetes mellitus without complications; Z88.2 Allergy status to sulfonamides; Z88.8 Allergy status to other drugs, medicaments and biological substances; E87.6 Hypokalemia
CPT/HCPCS: 36415; 51701; 71045; 71250; 80048; 80053; 81001; 82140; 82803; 82962; 83605; 83735; 84439; 84443; 84484; 85025; 85027; 87040; 87086; 87088; 93005; 93010; 96360; 99285; G0378; J3480; J3490; J7030; J7060; S0164

== ENCOUNTER 2018-01-14 06:53 | Inpatient (IN) | payer MEDICARE, MEDICAID ==
[2018-01-14 07:47] LABS: ABSOLUTE EOSINOPHILS # (AUTO) 0.1 10^3/uL (0.0-0.6); ABSOLUTE LYMPHOCYTES (AUTO) 0.5 10^3/uL (0.5-4.7); ABSOLUTE MONOCYTES (AUTO) 0.9 10^3/uL (0.1-1.4); ABSOLUTE NEUT (AUTO) 6.7 10^3/uL (1.7-8.2); BASOPHILS % (AUTO) 0.2 % (0-2); EOSINOPHILS % (AUTO) 1.2 % (0-6); HEMATOCRIT 34.5 % (37.9-51.0); HEMOGLOBIN 11.6 g/dL (13.5-17.0); LYMPHOCYTES % (AUTO) 5.9 % (13-45); MEAN CORPUSCULAR HEMOGLOBIN 29.1 pg (27.0-33.4); MEAN CORPUSCULAR HGB CONC 33.6 g/dL (32.0-36.0); MEAN CORPUSCULAR VOLUME 87 fl (80-97); MONOCYTES % (AUTO) 11.2 % (3-13); PLATELET COUNT 139 10^3/uL (150-450); RED BLOOD COUNT 3.98 10^6/uL (4.35-5.55); RED CELL DISTRIBUTION WIDTH 14.2 % (11.5-14.0); SEGMENTED NEUTROPHILS % (AUTO) 81.5 % (42-78); TOTAL CELLS COUNTED % (AUTO) 100 %; WHITE BLOOD COUNT 8.2 10^3/uL (4.0-10.5)
--- NOTE | 2018-01-14 07:48 | EKG REPORT ---
SEVERITY:- NORMAL ECG - SINUS RHYTHM : Confirmed by: Jose Antonio Hopkins MD 14-Jan-2018 07:46:30
[2018-01-14 08:05] LABS: ALANINE AMINOTRANSFERASE 27 U/L (21-72); ALBUMIN 3.8 g/dL (3.5-5.0); ALKALINE PHOSPHATASE 68 U/L (38-126); ANION GAP 12 (5-19); ASPARTATE AMINO TRANSFERASE 22 U/L (17-59); BILIRUBIN,TOTAL 0.2 mg/dL (0.2-1.3); BLOOD UREA NITROGEN 16 mg/dL (7-20); CALCIUM 9.3 mg/dL (8.4-10.2); CARBON DIOXIDE 23 mmol/L (22-30); CHLORIDE 108 mmol/L (98-107); CREATINE KINASE 209 U/L (55-170); GLUCOSE 106 mg/dL (75-110); LIPASE 66.1 U/L (23-300); POTASSIUM 4.1 mmol/L (3.6-5.0); SODIUM 142.7 mmol/L (137-145); TOTAL PROTEIN 6.5 g/dL (6.3-8.2)
--- NOTE | 2018-01-14 08:16 | RADIOLOGY REPORT (SQ) ---
EXAM DESCRIPTION: CHEST SINGLE VIEW COMPLETED DATE/TIME: 01/14/2018 7:47 am REASON FOR STUDY: ams COMPARISON: CT chest 12/08/2017 AP chest 12/09/2017, 12/08/2017, 11/28/2017 EXAM PARAMETERS: NUMBER OF VIEWS: One view. TECHNIQUE: Single frontal radiographic view of the chest acquired. RADIATION DOSE: NA LIMITATIONS: None. FINDINGS: LUNGS AND PLEURA: Minimal left basilar airspace disease is present, atelectasis versus pne umonia. Right lung is clear. No pleural effusion. No pneumothorax. MEDIASTINUM AND HILAR STRUCTURES: No masses. Contour normal. HEART AND VASCULAR STRUCTURES: Heart normal in size. Normal pulmonary vasculature. Tortuous uncoile d thoracic aorta BONES: No acute findings. HARDWARE: None in the chest. OTHER: No other significant finding. IMPRESSION: Minimal left basilar airspace disease atelectasis versus pneumonia TECHNICAL DOCUMENTATION: JOB ID: [id number] [employer]- All Rights Reserved Reading location - IP/workstation name: [email or web address]
[2018-01-14 08:18] LABS: CREATINE KINASE MB 1.93 ng/mL (<4.55); TROPONIN I < 0.012 ng/mL
[2018-01-14 10:41] LABS: URINE AMPHETAMINES SCREEN NEGATIVE; URINE BARBITURATES SCREEN NEGATIVE; URINE BENZODIAZEPINES SCREEN NEGATIVE; URINE COCAINE SCREEN NEGATIVE; URINE MARIJUANA (THC) SCREEN NEGATIVE; URINE METHADONE SCREEN NEGATIVE; URINE PHENCYCLIDINE SCREEN NEGATIVE
[2018-01-14 10:45] LABS: APPEARANCE,URINE SLIGHTLY-CLOUDY; BILIRUBIN,URINE NEGATIVE (NEGATIVE); COLOR,URINE STRAW; GLUCOSE, URINE NEGATIVE (NEGATIVE); KETONES,URINE NEGATIVE (NEGATIVE); PROTEIN,URINE 30 mg/dL (NEGATIVE)
[2018-01-14 10:46] LABS: LEUKOCYTE ESTERASE,URINE NEGATIVE (NEGATIVE); NITRITE,URINE NEGATIVE (NEGATIVE); UROBILINOGEN,URINE NEGATIVE mg/dL (<2.0)
[2018-01-14] MEDS ORDERED: ACETAMINOPHEN 650 MG SUPP.RECT PR ONE (11:16)
[2018-01-14] MEDS ORDERED: AZITHROMYCIN INJ 500 MG VIAL IV ONE (11:16)
[2018-01-14] MEDS ORDERED: LIDOCAINE 1% INJ-PF (10 MG/ML) 30 ML SDV INJ ONE (11:17)
[2018-01-14] MEDS ORDERED: CEFTRIAXONE INJ 1000 MG VIAL IV ONE (11:17)
[2018-01-14 11:41] LABS: VENOUS BLOOD HCO3 22.6 mmol/L (20-32); VENOUS BLOOD PCO2 42.3 mmHg (35-63); VENOUS BLOOD PH 7.35 (7.30-7.42)
--- NOTE | 2018-01-14 11:47 | ER Document Report ---
ED Blood Pressure Problem - General Chief Complaint: Low Blood Pressure Stated Complaint: ALTERED MENTAL STATUS Time Seen by Provider: 01/14/18 07:08 Mode of Arrival: Medic Information source: Emergency Med Personnel, Outside Facility Records Notes: Patient is a 67-year-old male who presents to the ER today for altered mental status, hypotension. Patient is severely demented, minimally verbal at baseline and they state that he just has not been verbal over the past 2 days. Patient apparently had a blood pressure when EMS went to pick him up of 52 systolic and they could not get a diastolic number. Patient got 200 cc of IV fluids on the way and has had normal blood pressures here. Patient cannot give any history, family is not present. Upon review of the chart patient does have a history of UTI, sepsis, altered mental status. TRAVEL OUTSIDE OF THE [place] IN LAST 30 DAYS: No - Related Data Allergies/Adverse Reactions: Sulfa (Sulfonamide Antibiotics) Allergy (Verified 01/14/18 07:24) trimethoprim [From Bactrim] Allergy (Verified 01/14/18 07:24) Past Medical History - General Information source: Outside Facility Records - Social History Smoking Status: Unknown if Ever Smoked Family History: None, Reviewed & Not Pertinent, Other - Unable to obtain due to patient's mentation Patient has suicidal ideation: No Patient has homicidal ideation: No - Past Medical History Cardiac Medical History: Reports: Hx Hypercholesterolemia, Hx Hypertension Endocrine Medical History: Reports: Hx Diabetes Mellitus Type 2 Renal/ Medical History: Denies: Hx Peritoneal Dialysis Psychiatric Medical History: Reports: Hx Dementia - Immunizations Immunizations up to date: No Hx Diphtheria, Pertussis, Tetanus Vaccination: Yes - unknown Hx Pneumococcal Vaccination: 08/08/14 Review of Systems - Review of Systems Constitutional: See HPI EENT: No symptoms reported Cardiovascular: See HPI Respiratory: No symptoms reported Gastrointestinal: No symptoms reported Genitourinary: No symptoms reported Male Genitourinary: No symptoms reported Musculoskeletal: No symptoms reported Skin: No symptoms reported Hematologic/Lymphatic: No symptoms reported Neurological/Psychological: See HPI Physical Exam - Vital signs Vitals: Pulse Ox 99 01/14/18 06:57 - Notes Notes: PHYSICAL EXAMINATION: GENERAL: Demented, nonverbal, but sleeping and in no acute distress. HEAD: Atraumatic, normocephalic. EYES: Pupils equal round and reactive to light, extraocular movements intact, sclera anicteric, conjunctiva are normal. ENT: ear canals without erythema or foreign body, TMs pearly garces with good bony landmarks, nares patent, oropharynx clear without exudates. Moist mucous membranes. NECK: Normal range of motion, supple without lymphadenopathy LUNGS: CTAB and equal. No wheezes rales or rhonchi. HEART: Regular rate and rhythm without murmurs ABDOMEN: Soft, no tenderness. No guarding, no rebound EXTREMITIES: Not able to evaluate range of motion, no pitting edema or cyanosis NEUROLOGICAL: Demented PSYCH: Demented SKIN: Warm, Dry, normal turgor, no rashes or lesions noted Course - Re-evaluation Re-evalutation: 01/14/18 11:46 Patient is a possible left lower lobe pneumonia on chest x-ray today versus atelectasis, febrile at 100.5F, patient may be at his baseline mentally as he is usually nonverbal and no family is here to tell me otherwise. Lactic acid is pending at this time. Azithromycin, Rocephin and Tylenol have all been given. - Vital Signs Vital signs: Temp Pulse Resp BP Pulse Ox 100.5 F H 93 16 114/79 98 01/14/18 07:14 01/14/18 07:14 01/14/18 10:15 01/14/18 10:15 01/14/18 10:15 - Laboratory Result Diagrams: 01/14/18 07:32 01/14/18 07:32 Laboratory results interpreted by me: 01/14/18 01/14/18 01/14/18 07:32 07:32 09:55 RBC 3.98 L Hgb 11.6 L Hct 34.5 L RDW 14.2 H Plt Count 139 L Seg Neutrophils % 81.5 H Lymphocytes % 5.9 L Chloride 108 H Creatine Kinase 209 H Urine Protein 30 H Urine Ascorbic Acid 20 H Discharge - Discharge Clinical Impression: Pneumonia Qualifiers: Pneumonia type: due to unspecified organism Laterality: left Lung location: lower lobe of lung Qualified Code(s): J18.1 - Lobar pneumonia, unspecified organism Condition: Stable Disposition: ADMITTED INPATIENT Admitting Provider: Hospitalist - may Unit Admitted: Telemetry Referrals: TALON BETANCOURT MD [Primary Care Provider] - Follow up as needed
[2018-01-14] MEDS ORDERED: LORAZEPAM 1 MG TABLET PO PRN (12:31)
[2018-01-14] MEDS ORDERED: MAGNESIUM HYDROXIDE SUSP 30 ML UDCUP PO PRN (12:31)
[2018-01-14] MEDS ORDERED: BISACODYL 10 MG SUPP.RECT PR PRN (12:31)
[2018-01-14] MEDS ORDERED: ACETAMINOPHEN 325 MG TABLET PO PRN (12:35)
[2018-01-14] MEDS ORDERED: ONDANSETRON 4 MG TAB.RAPDIS PO PRN (12:35)
[2018-01-14] MEDS ORDERED: ACETAMINOPHEN 650 MG SUPP.RECT PR PRN (12:35)
[2018-01-14] MEDS ORDERED: ONDANSETRON HCL INJ/PF 4 MG/2 ML SDV IV PRN (12:35)
[2018-01-14] MEDS ORDERED: LEVALBUTEROL HCL NEB 1.25 MG/3 ML AMPUL NEB PRN (12:35)
[2018-01-14] MEDS ORDERED: (PENDING PHARMACY ID) (Sertraline Hcl [Zoloft] 25 MG) PO SCH (12:45)
[2018-01-14] MEDS ORDERED: (PENDING PHARMACY ID) (Benztropine Mesylate [Benztropine Mesylate 0.5 Mg Tablet] 0.5 MG) PO SCH (12:45)
[2018-01-14] MEDS ORDERED: (PENDING PHARMACY ID) (Memantine Hcl [Namenda Xr] 14 MG) PO SCH (12:45)
--- NOTE | 2018-01-14 12:55 | PDOC H&P ---
History of Present Illness Admission Date/PCP: 01/14/18 12:07 TALON BETANCOURT MD History of Present Illness: LISA CHOE is a 67 year old male with advanced dementia and aggressive behavior who is nonverbal at baseline Past medical history includes Hypertension Hyperlipidemia Type 2 diabetes Dementia Hypothyroidism He presented to the emergency room from the intermediate facility due to creased confusion and hypotension. He was noted to be febrile and has new left lower lobe infiltrate on chest x- ray. He was started on IV fluids and antibiotics. He is a middle-aged -[place] gentleman lying in bed. He is nonverbal. Does not follow commands. Unable to give me history. Past Medical History Cardiac Medical History: Reports: Hyperlipidema, Hypertension Endocrine Medical History: Reports: Diabetes Mellitus Type 2 Psychiatric Medical History: Reports: Dementia Social History Smoking Status: Unknown if Ever Smoked Frequency of Alcohol Use: None Family History Family History: None, Other - Unable to obtain due to patient's mentation Parental Family History Reviewed: Yes Children Family History Reviewed: Yes Sibling(s) Family History Reviewed.: Yes Medication/Allergy Home Medications: Benztropine Mesylate [Benztropine Mesylate 0.5 mg Tablet] 0.5 mg PO Q12 Bisacodyl [Dulcolax 10 mg Supp.rect] 10 mg TN DAILYP PRN 01/14/18 Docusate Sodium [Colace 100 mg Capsule] 100 mg PO Q12 01/14/18 Donepezil HCl [Aricept] 10 mg PO QHS 01/14/18 Fenofibrate [Lipofen] 50 mg PO Q12 01/14/18 Haloperidol [Haldol 5 mg Tablet] 5 mg PO Q12 01/14/18 Levothyroxine Sodium [Synthroid 0.025 mg Tablet] 0.025 mg PO Q6AM 01/14/18 Lorazepam [Ativan 1 mg Tablet] 1 mg PO HSP PRN 01/14/18 Magnesium Hydroxide [Milk of Magnesia 30 ml Udcup] 45 ml PO DAILYP PRN 01/14/18 Memantine HCl [Namenda Xr] 14 mg PO DAILY 01/14/18 Metformin HCl [Glucophage 500 mg Tablet] 500 mg PO QAM 01/14/18 Metoprolol Tartrate [Lopressor 50 mg Tablet] 50 mg PO Q12 01/14/18 Sennosides/Docusate 8.6-50 mg [Senna Plus Tablet] 1 tab PO QHS 01/14/18 Sertraline HCl [Zoloft] 25 mg PO DAILY 01/14/18 Simvastatin [Zocor 40 mg Tablet] 40 mg PO QHS 01/14/18 Allergies/Adverse Reactions: Sulfa (Sulfonamide Antibiotics) Allergy (Verified 01/14/18 07:24) trimethoprim [From Bactrim] Allergy (Verified 01/14/18 07:24) Review of Systems ROS unobtainable: Due to mental status Physical Exam Vital Signs: Temp Pulse Resp BP Pulse Ox 100.5 F H 93 16 114/79 98 01/14/18 07:14 01/14/18 07:14 01/14/18 10:15 01/14/18 10:15 01/14/18 10:15 General appearance: PRESENT: no acute distress Head exam: PRESENT: atraumatic, normocephalic Eye exam: PRESENT: PERRLA. ABSENT: periorbital swelling, scleral icterus Ear exam: PRESENT: normal external ear exam Mouth exam: PRESENT: other - Unable to examine mouth. Does not follow commands. Neck exam: ABSENT: tracheal deviation Respiratory exam: PRESENT: decreased breath sounds, unlabored. ABSENT: accessory muscle use, retraction, wheezes Cardiovascular exam: PRESENT: RRR GI/Abdominal exam: PRESENT: normal bowel sounds, soft. ABSENT: tenderness Rectal exam: PRESENT: deferred Extremities exam: ABSENT: calf tenderness, pedal edema Neurological exam: PRESENT: altered, aphasic Focused psych exam: PRESENT: other - Unable to assess patient is nonverbal. Skin exam: ABSENT: abrasion, rash Results Impressions: Chest X-Ray 01/14/18 07:13 IMPRESSION: Minimal left basilar airspace disease atelectasis versus pneumonia Assessment & Plan - Diagnosis (1) Left lower lobe pneumonia Is this a current diagnosis for this admission?: Yes Plan: Day 1 of Levaquin and Rocephin. Follow-up on cultures. (2) Hypotension Qualifiers: Is this a current diagnosis for this admission?: Yes Plan: Likely secondary to pneumonia. Metoprolol dose has been cut back with hold parameters. Monitor rate and blood pressure. (3) Hypothyroid Qualifiers: Is this a current diagnosis for this admission?: Yes Plan: Continue Synthroid. (4) Metabolic encephalopathy Is this a current diagnosis for this admission?: Yes Plan: Due to pneumonia in a patient with underlying dementia. (5) Dementia with behavioral disturbance Qualifiers: Dementia type: unspecified type Qualified Code(s): F03.91 - Unspecified dementia with behavioral disturbance Is this a current diagnosis for this admission?: Yes Plan: Continue outpatient medications including Aricept and memantine and haloperidol as well as Zoloft. - Time Time Spent: Greater than 70 Minutes
[2018-01-14] MEDS ORDERED: DEXTROSE 50%-WATER 25 GM/50 ML DISP.SYRIN IV PRN ×2 (12:57)
[2018-01-14] MEDS ORDERED: INSULIN LISPRO 100 UNIT/ML 3 ML VIAL SUBCUT PRN (12:57)
[2018-01-14] MEDS ORDERED: DEXTROSE 40% GEL 15 GM TUBE PO PRN ×2 (12:57)
[2018-01-14] MEDS ORDERED: GLUCAGON,HUMAN RECOMB 1 MG INJ IM PRN (12:57)
[2018-01-14] MEDS ORDERED: LEVOTHYROXINE SODIUM 0.025 MG TABLET PO ONE (15:00)
[2018-01-14] MEDS ORDERED: HALOPERIDOL 5 MG TABLET PO ONE (15:00)
[2018-01-14] MEDS ORDERED: SERTRALINE HCL 50 MG TABLET PO ONE (15:00)
[2018-01-14] MEDS ORDERED: BENZTROPINE MESYLATE 1 MG TABLET PO ONE (15:00)
[2018-01-14] MEDS ORDERED: ENOXAPARIN SODIUM INJ 40 MG/0.4 ML DISP.SYRIN SUBCUT ONE (15:30)
[2018-01-14] MEDS: LEVOFLOXACIN 750 MG/D5W RTU 750 MG/150 ML RTUPB IV SCH (15:47)
[2018-01-14] MEDS ORDERED: INFLUENZA ADLT QUAD (36MOS+) 2017-18 VAC 0.5 ML SYR IM PRN (18:45)
[2018-01-14] MEDS: NORMAL SALINE 1000 ML 1,000 ML IV PRN (20:46)
[2018-01-14] MEDS ORDERED: FENOFIBRATE 50 MG PO SCH (22:00)
[2018-01-14] MEDS ORDERED: (PENDING PHARMACY ID) (Donepezil Hcl [Aricept] 10 MG) PO SCH (22:00)
[2018-01-14] MEDS ORDERED: METOPROLOL TARTRATE 25 MG TABLET PO SCH (22:00)
[2018-01-14] MEDS: METOPROLOL TARTRATE 25 MG TABLET PO SCH (22:53)
[2018-01-14] MEDS: DONEPEZIL HCL 5 MG TABLET PO SCH (22:53)
[2018-01-14] MEDS: FENOFIBRATE NANOCRYSTALLIZED 48 MG TABLET PO SCH (22:53)
[2018-01-14] MEDS: SIMVASTATIN 40 MG TABLET PO SCH (22:53)
[2018-01-14] MEDS: HALOPERIDOL 5 MG TABLET PO SCH (22:54)
[2018-01-14] MEDS: DOCUSATE SODIUM 100 MG CAPSULE PO SCH (22:54)
[2018-01-14] MEDS: SENNOSIDES/DOCUSATE 8.6-50 MG 1 EACH TABLET PO SCH (22:54)
[2018-01-14] MEDS: BENZTROPINE MESYLATE 1 MG TABLET PO SCH (22:55)
[2018-01-15] MEDS: NORMAL SALINE 1000 ML 1,000 ML IV PRN (05:48)
[2018-01-15] MEDS: LEVOTHYROXINE SODIUM 0.025 MG TABLET PO SCH (05:48)
[2018-01-15] MEDS: LANSOPRAZOLE 30 MG TAB.RAP.DR PO SCH (05:48)
[2018-01-15 07:11] LABS: HEMATOCRIT 33.8 % (37.9-51.0); MEAN CORPUSCULAR HEMOGLOBIN 28.7 pg (27.0-33.4); MEAN CORPUSCULAR HGB CONC 32.5 g/dL (32.0-36.0); MEAN CORPUSCULAR VOLUME 88 fl (80-97); PLATELET COUNT 131 10^3/uL (150-450); RED BLOOD COUNT 3.83 10^6/uL (4.35-5.55); RED CELL DISTRIBUTION WIDTH 14.2 % (11.5-14.0); WHITE BLOOD COUNT 5.1 10^3/uL (4.0-10.5)
[2018-01-15 07:35] LABS: ALANINE AMINOTRANSFERASE 33 U/L (21-72); ALBUMIN 3.6 g/dL (3.5-5.0); ALKALINE PHOSPHATASE 61 U/L (38-126); ANION GAP 10 (5-19); ASPARTATE AMINO TRANSFERASE 27 U/L (17-59); BLOOD UREA NITROGEN 14 mg/dL (7-20); CALCIUM 8.9 mg/dL (8.4-10.2); CARBON DIOXIDE 23 mmol/L (22-30); CHLORIDE 111 mmol/L (98-107); GLUCOSE 90 mg/dL (75-110); PHOSPHORUS 3.3 mg/dL (2.5-4.5); POTASSIUM 3.9 mmol/L (3.6-5.0); SODIUM 143.6 mmol/L (137-145); TOTAL PROTEIN 6.1 g/dL (6.3-8.2)
[2018-01-15 07:39] LABS: BILIRUBIN,TOTAL < 0.1 mg/dL (0.2-1.3)
[2018-01-15 07:45] LABS: ABSOLUTE LYMPHOCYTES# (MANUAL) 0.8 10^3/uL (0.5-4.7); ABSOLUTE MONOCYTES # (MANUAL) 0.9 10^3/uL (0.1-1.4); ABSOLUTE NEUTROPHILS# (MANUAL) 3.4 10^3/uL (1.7-8.2); BASOPHILS % (MANUAL) 0 % (0-2); EOSINOPHILS % (MANUAL) 1 % (0-6); LYMPHOCYTES % (MANUAL) 15 % (13-45); MONOCYTES % (MANUAL) 17 % (3-13); SEGMENTED NEUTROPHILS % (MAN) 67 % (42-78); TOTAL CELLS COUNTED 100
[2018-01-15 07:47] LABS: ANISOCYTOSIS SLIGHT; OVALOCYTES SLIGHT
[2018-01-15 07:48] LABS: PLATELET COMMENT ADEQUATE; POIKILOCYTOSIS SLIGHT
[2018-01-15] MEDS: ENOXAPARIN SODIUM INJ 40 MG/0.4 ML DISP.SYRIN SUBCUT SCH (09:07)
[2018-01-15] MEDS: DOCUSATE SODIUM 100 MG CAPSULE PO SCH ×2 (09:11→22:32)
[2018-01-15] MEDS: BENZTROPINE MESYLATE 1 MG TABLET PO SCH ×2 (09:12→22:32)
[2018-01-15] MEDS: SERTRALINE HCL 50 MG TABLET PO SCH (09:12)
[2018-01-15] MEDS: FENOFIBRATE NANOCRYSTALLIZED 48 MG TABLET PO SCH ×2 (09:12→22:36)
[2018-01-15] MEDS: METOPROLOL TARTRATE 25 MG TABLET PO SCH ×2 (09:12→22:33)
[2018-01-15] MEDS: HALOPERIDOL 5 MG TABLET PO SCH ×2 (09:13→22:33)
[2018-01-15] MEDS: CEFTRIAXONE SODIUM 1,000 MG in NORMAL SALINE 100 ML IV SCH (09:22)
[2018-01-15] MEDS ORDERED: CEFTRIAXONE 1 GM/D5W RTU 1 GM/50 ML RTUPB IV SCH (10:00)
--- NOTE | 2018-01-15 10:23 | EKG REPORT ---
SEVERITY:- NORMAL ECG - SINUS RHYTHM : Confirmed by: Jose Antonio Hopkins MD 15-Jan-2018 10:22:54
--- NOTE | 2018-01-15 12:12 | PDOC PROGRESS REPORT ---
Subjective Progress Note for:: 01/15/18 Reason For Visit: PNEUMONIA Looks much better today. He is a phasic which is at baseline but he is awake and alert he is sitting up in bed. According to the nurse his p.o. intake has been great and he has a good appetite. Physical Exam Vital Signs: Temp Pulse Resp BP Pulse Ox 99.4 F 74 16 154/92 H 100 01/15/18 04:38 01/15/18 07:00 01/15/18 04:38 01/15/18 04:38 01/15/18 04:38 Intake & Output 01/14/18 01/15/18 01/16/18 06:59 06:59 06:59 Intake Total 1000 Balance 1000 Weight 55.9 kg General appearance: PRESENT: no acute distress Eye exam: PRESENT: PERRLA. ABSENT: scleral icterus Mouth exam: PRESENT: moist Respiratory exam: PRESENT: rhonchi, symmetrical, unlabored Cardiovascular exam: PRESENT: RRR GI/Abdominal exam: PRESENT: normal bowel sounds, soft. ABSENT: tenderness Rectal exam: PRESENT: deferred Neurological exam: PRESENT: awake, aphasic Psychiatric exam: PRESENT: normal mood Skin exam: ABSENT: rash Results Laboratory Results: 01/15/18 05:53 01/15/18 05:53 01/15/18 01/15/18 01/15/18 05:53 05:53 05:53 WBC 5.1 RBC 3.83 L Hgb 11.0 L Hct 33.8 L MCV 88 MCH 28.7 MCHC 32.5 RDW 14.2 H Plt Count 131 L Seg Neutrophils % Not Reportable Lymphocytes % Not Reportable Monocytes % Not Reportable Eosinophils % Not Reportable Basophils % Not Reportable Absolute Neutrophils Not Reportable Absolute Lymphocytes Not Reportable Absolute Monocytes Not Reportable Absolute Eosinophils Not Reportable Absolute Basophils Not Reportable Sodium 143.6 Potassium 3.9 Chloride 111 H Carbon Dioxide 23 Anion Gap 10 BUN 14 Creatinine 0.95 Est GFR ( Amer) > 60 Est GFR (Non-Af Amer) > 60 Glucose 90 Calcium 8.9 Phosphorus 3.3 Magnesium 1.8 Total Bilirubin < 0.1 L AST 27 ALT 33 Alkaline Phosphatase 61 Total Protein 6.1 L Albumin 3.6 TSH 2.64 01/15/18 05:53 NT-Pro-B Natriuret Pep 150 Impressions: Chest X-Ray 01/14/18 07:13 IMPRESSION: Minimal left basilar airspace disease atelectasis versus pneumonia Assessment & Plan - Diagnosis (1) Left lower lobe pneumonia Is this a current diagnosis for this admission?: Yes Plan: Day 2 of Levaquin and Rocephin. Follow-up on cultures. (2) Hypotension Qualifiers: Is this a current diagnosis for this admission?: Yes Plan: Likely secondary to pneumonia. BP improving. I ncrease Metoprolol back up slowly towards outpt dose as tolerated (3) Hypothyroid Qualifiers: Is this a current diagnosis for this admission?: Yes Plan: Continue Synthroid. (4) Metabolic encephalopathy Is this a current diagnosis for this admission?: Yes Plan: Due to pneumonia in a patient with underlying dementia. Improving (5) Dementia with behavioral disturbance Qualifiers: Dementia type: unspecified type Qualified Code(s): F03.91 - Unspecified dementia with behavioral disturbance Is this a current diagnosis for this admission?: Yes Plan: Continue outpatient medications including Aricept and memantine and haloperidol as well as Zoloft. - Time Time Spent with patient: 25-34 minutes
[2018-01-15] MEDS: LEVOFLOXACIN 750 MG/D5W RTU 750 MG/150 ML RTUPB IV SCH (14:43)
[2018-01-15] MEDS ORDERED: METOPROLOL TARTRATE 50 MG TABLET PO SCH ×2 (22:00)
[2018-01-15] MEDS: DONEPEZIL HCL 5 MG TABLET PO SCH (22:31)
[2018-01-15] MEDS: SENNOSIDES/DOCUSATE 8.6-50 MG 1 EACH TABLET PO SCH (22:32)
[2018-01-15] MEDS: SIMVASTATIN 40 MG TABLET PO SCH (22:33)
[2018-01-16] MEDS: LANSOPRAZOLE 30 MG TAB.RAP.DR PO SCH (06:20)
[2018-01-16] MEDS: LEVOTHYROXINE SODIUM 0.025 MG TABLET PO SCH (06:20)
[2018-01-16] MEDS: ENOXAPARIN SODIUM INJ 40 MG/0.4 ML DISP.SYRIN SUBCUT SCH (09:31)
[2018-01-16] MEDS: CEFTRIAXONE SODIUM 1,000 MG in NORMAL SALINE 100 ML IV SCH (09:31)
[2018-01-16] MEDS: DOCUSATE SODIUM 100 MG CAPSULE PO SCH ×2 (09:32→22:55)
[2018-01-16] MEDS: FENOFIBRATE NANOCRYSTALLIZED 48 MG TABLET PO SCH ×2 (09:32→23:46)
[2018-01-16] MEDS: BENZTROPINE MESYLATE 1 MG TABLET PO SCH ×2 (09:32→22:52)
[2018-01-16] MEDS: SERTRALINE HCL 50 MG TABLET PO SCH (09:32)
[2018-01-16] MEDS: METOPROLOL TARTRATE 25 MG TABLET PO SCH ×2 (09:33→22:53)
[2018-01-16] MEDS: HALOPERIDOL 5 MG TABLET PO SCH ×2 (09:33→22:54)
[2018-01-16] MEDS ORDERED: VANCOMYCIN HCL 0 MG in DEXTROSE 5%-WATER 250 ML IV NR (11:30)
[2018-01-16] MEDS: LEVOFLOXACIN 750 MG/D5W RTU 750 MG/150 ML RTUPB IV SCH (14:33)
--- NOTE | 2018-01-16 15:25 | PDOC PROGRESS REPORT ---
Subjective Progress Note for:: 01/16/18 Subjective:: One out of two sets of blood cultures positive for GPC in clusters. Rocephin switched to vanc Identification and sensitivity pending Reason For Visit: PNEUMONIA Physical Exam Vital Signs: Temp Pulse Resp BP Pulse Ox 98.4 F 66 20 125/87 H 97 01/16/18 07:47 01/16/18 14:00 01/16/18 07:47 01/16/18 07:47 01/16/18 07:47 Intake & Output 01/15/18 01/16/18 01/17/18 06:59 06:59 06:59 Intake Total 1000 1795 Balance 1000 1795 Weight 55.9 kg 54.7 kg General appearance: PRESENT: no acute distress Eye exam: ABSENT: scleral icterus Ear exam: PRESENT: normal external ear exam Mouth exam: PRESENT: moist Neck exam: ABSENT: tracheal deviation Respiratory exam: PRESENT: rhonchi, symmetrical, unlabored Cardiovascular exam: PRESENT: RRR GI/Abdominal exam: PRESENT: normal bowel sounds, soft. ABSENT: tenderness Rectal exam: PRESENT: deferred Results Laboratory Results: 01/15/18 05:53 01/15/18 05:53 01/15/18 05:53 NT-Pro-B Natriuret Pep 150 Impressions: Chest X-Ray 01/14/18 07:13 IMPRESSION: Minimal left basilar airspace disease atelectasis versus pneumonia Assessment & Plan - Diagnosis (1) Left lower lobe pneumonia Is this a current diagnosis for this admission?: Yes Plan: Day 3 of antibiotics. Levaquin and Vanc Follow-up on cultures. (2) Hypotension Qualifiers: Is this a current diagnosis for this admission?: Yes Plan: Likely secondary to pneumonia. BP improving. I ncrease Metoprolol back up slowly towards outpt dose as tolerated (3) Hypothyroid Qualifiers: Is this a current diagnosis for this admission?: Yes Plan: Continue Synthroid. (4) Metabolic encephalopathy Is this a current diagnosis for this admission?: Yes Plan: Due to pneumonia in a patient with underlying dementia. Improving. (5) Dementia with behavioral disturbance Qualifiers: Dementia type: unspecified type Qualified Code(s): F03.91 - Unspecified dementia with behavioral disturbance Is this a current diagnosis for this admission?: Yes Plan: Continue outpatient medications including Aricept and memantine and haloperidol as well as Zoloft. - Time Time Spent with patient: 25-34 minutes
[2018-01-16] MEDS: VANCOMYCIN HCL 500 MG in DEXTROSE 5%-WATER 100 ML IV SCH (17:13)
[2018-01-16] MEDS: DONEPEZIL HCL 5 MG TABLET PO SCH (22:52)
[2018-01-16] MEDS: SIMVASTATIN 40 MG TABLET PO SCH (22:53)
[2018-01-16] MEDS: SENNOSIDES/DOCUSATE 8.6-50 MG 1 EACH TABLET PO SCH (22:53)
[2018-01-17 05:27] LABS: ABSOLUTE LYMPHOCYTES (AUTO) 1.7 10^3/uL (0.5-4.7); ABSOLUTE MONOCYTES (AUTO) 0.7 10^3/uL (0.1-1.4); ABSOLUTE NEUT (AUTO) 3.5 10^3/uL (1.7-8.2); BASOPHILS % (AUTO) 0.4 % (0-2); EOSINOPHILS % (AUTO) 0.3 % (0-6); HEMATOCRIT 36.2 % (37.9-51.0); HEMOGLOBIN 11.8 g/dL (13.5-17.0); LYMPHOCYTES % (AUTO) 28.9 % (13-45); MEAN CORPUSCULAR HEMOGLOBIN 28.5 pg (27.0-33.4); MEAN CORPUSCULAR HGB CONC 32.5 g/dL (32.0-36.0); MEAN CORPUSCULAR VOLUME 88 fl (80-97); MONOCYTES % (AUTO) 11.7 % (3-13); PLATELET COUNT 161 10^3/uL (150-450); RED BLOOD COUNT 4.14 10^6/uL (4.35-5.55); RED CELL DISTRIBUTION WIDTH 14.3 % (11.5-14.0); SEGMENTED NEUTROPHILS % (AUTO) 58.7 % (42-78); TOTAL CELLS COUNTED % (AUTO) 100 %
[2018-01-17 06:04] LABS: ANION GAP 14 (5-19); BLOOD UREA NITROGEN 17 mg/dL (7-20); CALCIUM 9.1 mg/dL (8.4-10.2); CARBON DIOXIDE 18 mmol/L (22-30); CHLORIDE 110 mmol/L (98-107); GLUCOSE 125 mg/dL (75-110); POTASSIUM 3.9 mmol/L (3.6-5.0); SODIUM 142.2 mmol/L (137-145)
[2018-01-17] MEDS: LANSOPRAZOLE 30 MG TAB.RAP.DR PO SCH (06:54)
[2018-01-17] MEDS: VANCOMYCIN HCL 500 MG in DEXTROSE 5%-WATER 100 ML IV SCH ×2 (06:55→18:01)
[2018-01-17] MEDS: LEVOTHYROXINE SODIUM 0.025 MG TABLET PO SCH (06:55)
[2018-01-17] MEDS: HALOPERIDOL 5 MG TABLET PO SCH ×2 (11:04→21:31)
[2018-01-17] MEDS: MAGNESIUM OXIDE 400 MG TABLET PO SCH ×2 (11:05→18:01)
[2018-01-17] MEDS: ENOXAPARIN SODIUM INJ 40 MG/0.4 ML DISP.SYRIN SUBCUT SCH (11:05)
[2018-01-17] MEDS: SERTRALINE HCL 50 MG TABLET PO SCH (11:06)
[2018-01-17] MEDS: DOCUSATE SODIUM 100 MG CAPSULE PO SCH ×2 (11:06→21:31)
[2018-01-17] MEDS: METOPROLOL TARTRATE 25 MG TABLET PO SCH ×2 (11:07→21:31)
[2018-01-17] MEDS: BENZTROPINE MESYLATE 1 MG TABLET PO SCH ×2 (11:07→21:30)
[2018-01-17] MEDS: FENOFIBRATE NANOCRYSTALLIZED 48 MG TABLET PO SCH ×2 (11:07→21:30)
--- NOTE | 2018-01-17 13:44 | PDOC PROGRESS REPORT ---
Subjective Progress Note for:: 01/17/18 Subjective:: 67 yr old male SNF resident dementia and aphasia at baseline presented with decreased responsiveness found to have Pneumonia. One out of two sets of blood cultures positive for GPC in clusters. Continue Vancomycin until identification and sensitivities return. Reason For Visit: PNEUMONIA Physical Exam Vital Signs: Temp Pulse Resp BP Pulse Ox 99.2 F 84 22 H 148/88 H 99 01/17/18 07:46 01/17/18 07:46 01/17/18 07:46 01/17/18 07:46 01/17/18 07:46 Intake & Output 01/16/18 01/17/18 01/18/18 06:59 06:59 06:59 Intake Total 1795 570 Balance 1795 570 Weight 54.7 kg 55.3 kg General appearance: PRESENT: no acute distress Head exam: PRESENT: atraumatic Eye exam: PRESENT: PERRLA Ear exam: PRESENT: normal external ear exam Respiratory exam: PRESENT: rhonchi, symmetrical. ABSENT: accessory muscle use Cardiovascular exam: PRESENT: RRR GI/Abdominal exam: PRESENT: normal bowel sounds, soft. ABSENT: tenderness Rectal exam: PRESENT: deferred Extremities exam: ABSENT: calf tenderness, pedal edema Neurological exam: PRESENT: aphasic Results Laboratory Results: 01/17/18 05:04 01/17/18 05:04 01/17/18 01/17/18 05:04 05:04 WBC 6.0 RBC 4.14 L Hgb 11.8 L Hct 36.2 L MCV 88 MCH 28.5 MCHC 32.5 RDW 14.3 H Plt Count 161 Seg Neutrophils % 58.7 Lymphocytes % 28.9 Monocytes % 11.7 Eosinophils % 0.3 Basophils % 0.4 Absolute Neutrophils 3.5 Absolute Lymphocytes 1.7 Absolute Monocytes 0.7 Absolute Eosinophils 0.0 Absolute Basophils 0.0 Sodium 142.2 Potassium 3.9 Chloride 110 H Carbon Dioxide 18 L Anion Gap 14 BUN 17 Creatinine 1.13 Est GFR ( Amer) > 60 Est GFR (Non-Af Amer) > 60 Glucose 125 H Calcium 9.1 Phosphorus 4.0 Magnesium 1.8 01/15/18 05:53 NT-Pro-B Natriuret Pep 150 Impressions: Chest X-Ray 01/14/18 07:13 IMPRESSION: Minimal left basilar airspace disease atelectasis versus pneumonia Assessment & Plan - Diagnosis (1) Left lower lobe pneumonia Is this a current diagnosis for this admission?: Yes Plan: Day 4 of antibiotics. Levaquin and Vanc Follow-up on cultures. (2) Hypotension Qualifiers: Is this a current diagnosis for this admission?: Yes Plan: Likely secondary to pneumonia. BP improving. I ncrease Metoprolol back up slowly towards outpt dose as tolerated (3) Hypothyroid Qualifiers: Is this a current diagnosis for this admission?: Yes Plan: Continue Synthroid. (4) Metabolic encephalopathy Is this a current diagnosis for this admission?: Yes Plan: Due to pneumonia in a patient with underlying dementia. Improving. (5) Dementia with behavioral disturbance Qualifiers: Dementia type: unspecified type Qualified Code(s): F03.91 - Unspecified dementia with behavioral disturbance Is this a current diagnosis for this admission?: Yes Plan: Continue outpatient medications including Aricept and memantine and haloperidol as well as Zoloft. - Time Time Spent with patient: 25-34 minutes
[2018-01-17] MEDS: LEVOFLOXACIN 750 MG/D5W RTU 750 MG/150 ML RTUPB IV SCH (14:42)
[2018-01-17] MEDS: DONEPEZIL HCL 5 MG TABLET PO SCH (21:30)
[2018-01-17] MEDS: SENNOSIDES/DOCUSATE 8.6-50 MG 1 EACH TABLET PO SCH (21:31)
[2018-01-17] MEDS: SIMVASTATIN 40 MG TABLET PO SCH (21:31)
[2018-01-18] MEDS: LANSOPRAZOLE 30 MG TAB.RAP.DR PO SCH (05:57)
[2018-01-18] MEDS: LEVOTHYROXINE SODIUM 0.025 MG TABLET PO SCH (05:57)
[2018-01-18] MEDS: VANCOMYCIN HCL 500 MG in DEXTROSE 5%-WATER 100 ML IV SCH (05:58)
[2018-01-18 06:35] LABS: VANCOMYCIN,TROUGH < 5.0 ug/mL (5.0-20.0)
[2018-01-18] MEDS: HALOPERIDOL 5 MG TABLET PO SCH ×2 (10:11→21:45)
[2018-01-18] MEDS: SERTRALINE HCL 50 MG TABLET PO SCH (10:11)
[2018-01-18] MEDS: BENZTROPINE MESYLATE 1 MG TABLET PO SCH ×2 (10:11→21:45)
[2018-01-18] MEDS: MAGNESIUM OXIDE 400 MG TABLET PO SCH ×2 (10:12→17:08)
[2018-01-18] MEDS: METOPROLOL TARTRATE 25 MG TABLET PO SCH ×2 (10:12→21:45)
[2018-01-18] MEDS: FENOFIBRATE NANOCRYSTALLIZED 48 MG TABLET PO SCH ×2 (10:12→21:45)
[2018-01-18] MEDS: DOCUSATE SODIUM 100 MG CAPSULE PO SCH ×2 (10:12→21:44)
[2018-01-18] MEDS: ENOXAPARIN SODIUM INJ 40 MG/0.4 ML DISP.SYRIN SUBCUT SCH (10:13)
[2018-01-18] MEDS: VANCOMYCIN HCL 750 MG in DEXTROSE 5%-WATER 250 ML IV SCH ×2 (13:40→21:46)
[2018-01-18] MEDS: LEVOFLOXACIN 750 MG/D5W RTU 750 MG/150 ML RTUPB IV SCH (15:28)
--- NOTE | 2018-01-18 18:10 | PDOC PROGRESS REPORT ---
Subjective Progress Note for:: 01/18/18 Subjective:: Nonverbal. Reason For Visit: 67 yr old male SNF resident dementia and aphasia at baseline presented with decreased responsiveness found to have Pneumonia. One out of two sets of blood cultures positive for GPC in clusters. Continue Vancomycin until identification and sensitivities return. Physical Exam Vital Signs: Temp Pulse Resp BP Pulse Ox 99.1 F 82 22 H 165/78 H 100 01/18/18 16:00 01/18/18 16:00 01/18/18 16:00 01/18/18 16:00 01/18/18 16:00 Intake & Output 01/17/18 01/18/18 01/19/18 06:59 06:59 06:59 Intake Total 570 1480 1064 Output Total 1350 330 Balance 570 130 734 Weight 55.3 kg 67.5 kg General appearance: PRESENT: no acute distress, well-developed, well-nourished Head exam: PRESENT: atraumatic, normocephalic Respiratory exam: PRESENT: clear to auscultation sonia. ABSENT: rales, rhonchi, wheezes Cardiovascular exam: PRESENT: RRR. ABSENT: diastolic murmur, rubs, systolic murmur GI/Abdominal exam: PRESENT: normal bowel sounds, soft. ABSENT: distended, guarding, mass, organolmegaly, rebound, tenderness Neurological exam: PRESENT: awake Results Laboratory Results: 01/17/18 05:04 01/18/18 05:46 01/18/18 05:46 Creatinine 0.93 Est GFR ( Amer) > 60 Est GFR (Non-Af Amer) > 60 01/15/18 05:53 NT-Pro-B Natriuret Pep 150 Impressions: Chest X-Ray 01/14/18 07:13 IMPRESSION: Minimal left basilar airspace disease atelectasis versus pneumonia Assessment & Plan - Diagnosis (1) Left lower lobe pneumonia Qualifiers: Pneumonia type: due to unspecified organism Qualified Code(s): J18.1 - Lobar pneumonia, unspecified organism Is this a current diagnosis for this admission?: Yes (2) HTN (hypertension) Qualifiers: Hypertension type: essential hypertension Qualified Code(s): I10 - Essential (primary) hypertension Is this a current diagnosis for this admission?: Yes Plan: Blood pressure control. (3) Hypotension Qualifiers: Is this a current diagnosis for this admission?: Yes Plan: Resolved. (4) Hypothyroid Qualifiers: Is this a current diagnosis for this admission?: Yes Plan: Continue levothyroxine (5) Metabolic encephalopathy Is this a current diagnosis for this admission?: Yes Plan: Improved. Likely due to his infection in the context of his underlying dementia. - Time Time Spent with patient: 25-34 minutes Anticipated discharge: SNF Within: within 48 hours - Inpatient Certification Based on my medical assessment, after consideration of the patient's comorbidities, presenting symptoms, or acuity I expect that the services needed warrant INPATIENT care.: Yes I certify that my determination is in accordance with my understanding of Medicare's requirements for reasonable and necessary INPATIENT services [42 CFR 412.3e].: Yes Medical Necessity: Need for IV Antibiotics
[2018-01-18] MEDS: SIMVASTATIN 40 MG TABLET PO SCH (21:44)
[2018-01-18] MEDS: SENNOSIDES/DOCUSATE 8.6-50 MG 1 EACH TABLET PO SCH (21:44)
[2018-01-18] MEDS: DONEPEZIL HCL 5 MG TABLET PO SCH (21:45)
[2018-01-19] MEDS: LEVOTHYROXINE SODIUM 0.025 MG TABLET PO SCH (06:23)
[2018-01-19] MEDS: VANCOMYCIN HCL 750 MG in DEXTROSE 5%-WATER 250 ML IV SCH (06:23)
[2018-01-19] MEDS: LANSOPRAZOLE 30 MG TAB.RAP.DR PO SCH (06:23)
[2018-01-19] MEDS: METOPROLOL TARTRATE 25 MG TABLET PO SCH (09:52)
[2018-01-19] MEDS: MAGNESIUM OXIDE 400 MG TABLET PO SCH ×2 (09:53→17:57)
[2018-01-19] MEDS: SERTRALINE HCL 50 MG TABLET PO SCH (09:53)
[2018-01-19] MEDS: DOCUSATE SODIUM 100 MG CAPSULE PO SCH (09:53)
[2018-01-19] MEDS: BENZTROPINE MESYLATE 1 MG TABLET PO SCH (09:54)
[2018-01-19] MEDS: HALOPERIDOL 5 MG TABLET PO SCH (09:54)
[2018-01-19] MEDS: FENOFIBRATE NANOCRYSTALLIZED 48 MG TABLET PO SCH (09:55)
[2018-01-19] MEDS: ENOXAPARIN SODIUM INJ 40 MG/0.4 ML DISP.SYRIN SUBCUT SCH (09:59)
--- NOTE | 2018-01-19 13:09 | PDOC TRANSFER SUMMARY ---
General - Admit/Disc Date/PCP Admission Date/Primary Care Provider: 01/14/18 12:07 TALON BETANCOURT MD Discharge Date: 01/19/18 - Discharge Diagnosis (1) Left lower lobe pneumonia Is this a current diagnosis for this admission?: Yes (2) HTN (hypertension) Is this a current diagnosis for this admission?: Yes (3) Hypotension Is this a current diagnosis for this admission?: Yes Summary: resolved (4) Hypothyroid Is this a current diagnosis for this admission?: Yes (5) Metabolic encephalopathy Is this a current diagnosis for this admission?: Yes Summary: resolved - Additional Information Resuscitation Status: Full Code Discharge Diet: Regular Discharge Activity: Activity As Tolerated Prescriptions: Amox Tr/Potassium Clavulanate [Augmentin 875-125 mg Tablet] 1 tab PO BID 10 Days #20 tablet Home Medications: Benztropine Mesylate [Benztropine Mesylate 0.5 mg Tablet] 0.5 mg PO Q12 Bisacodyl [Dulcolax 10 mg Supp.rect] 10 mg GA DAILYP PRN 01/14/18 Docusate Sodium [Colace 100 mg Capsule] 100 mg PO Q12 01/14/18 Donepezil HCl [Aricept] 10 mg PO QHS 01/14/18 Fenofibrate [Lipofen] 50 mg PO Q12 01/14/18 Haloperidol [Haldol 5 mg Tablet] 5 mg PO Q12 01/14/18 Levothyroxine Sodium [Synthroid 0.025 mg Tablet] 0.025 mg PO Q6AM 01/14/18 Lorazepam [Ativan 1 mg Tablet] 1 mg PO HSP PRN 01/14/18 Magnesium Hydroxide [Milk of Magnesia 30 ml Udcup] 45 ml PO DAILYP PRN 01/14/18 Memantine HCl [Namenda Xr] 14 mg PO DAILY 01/14/18 Metformin HCl [Glucophage 500 mg Tablet] 500 mg PO QAM 01/14/18 Metoprolol Tartrate [Lopressor 50 mg Tablet] 50 mg PO Q12 01/14/18 Sennosides/Docusate 8.6-50 mg [Senna Plus Tablet] 1 tab PO QHS 01/14/18 Sertraline HCl [Zoloft] 25 mg PO DAILY 01/14/18 Simvastatin [Zocor 40 mg Tablet] 40 mg PO QHS 01/14/18 Amox Tr/Potassium Clavulanate [Augmentin 875-125 mg Tablet] 1 tab PO BID 10 Days #20 tablet 01/19/18 History of Present Illness Admission Date/PCP: 01/14/18 12:07 TALON BETANCOURT MD History of Present Illness: LISA CHOE is a 67 year old male with advanced dementia and aggressive behavior who is nonverbal at baseline. Past medical history includes: Hypertension Hyperlipidemia Type 2 diabetes Dementia Hypothyroidism He presented to the emergency room from the alf facility due to increased confusion and hypotension. He was noted to be febrile and had new left lower lobe infiltrate on chest x- ray. He was started on IV fluids and antibiotics. Hospital Course Hospital Course: He was started on broad spectrum antibiotics. His mental status returned to baseline, likewise his BP. He remained in the hospital even after it was clear that he improve waiting for blood culture ID and sensitivities. His initial blood culture was growing gram-positive cocci. Later, it showed staph capitis. Up until this time, he was treated with IV vancomycin. His hospital stay was uneventful. He had no behavioral issues while he was here. Physical Exam Vital Signs: Temp Pulse Resp BP Pulse Ox 98.7 F 78 16 151/67 H 97 01/19/18 12:00 01/19/18 12:00 01/19/18 12:00 01/19/18 12:00 01/19/18 12:00 Intake & Output 01/18/18 01/19/18 01/20/18 06:59 06:59 06:59 Intake Total 1480 2044 Output Total 1350 630 Balance 130 1414 Weight 67.5 kg 68.8 kg General appearance: PRESENT: no acute distress, well-developed, well-nourished Head exam: PRESENT: atraumatic, normocephalic Eye exam: PRESENT: EOMI, PERRLA Neck exam: ABSENT: carotid bruit, JVD, lymphadenopathy, thyromegaly Respiratory exam: PRESENT: clear to auscultation sonia. ABSENT: rales, rhonchi, wheezes Cardiovascular exam: PRESENT: RRR. ABSENT: diastolic murmur, rubs, systolic murmur GI/Abdominal exam: PRESENT: normal bowel sounds, soft. ABSENT: distended, guarding, mass, organolmegaly, rebound, tenderness Neurological exam: PRESENT: awake, CN II-XII grossly intact Results Laboratory Results: 01/17/18 05:04 01/18/18 05:46 01/14/18 12:13 Blood Blood Culture - Final NO GROWTH IN 5 DAYS 01/15/18 05:53 NT-Pro-B Natriuret Pep 150 Impressions: Chest X-Ray 01/14/18 07:13 IMPRESSION: Minimal left basilar airspace disease atelectasis versus pneumonia Transfer Plan - Disposition Transfer Plan: To [facility] - Time Spent with Patient Time spent with patient: Greater than 30 Minutes Qualifiers - * PATEINT BEING DISCHARGED WITH ANY OF THE FOLLOWING DIAGNOSIS?: No
[2018-01-19] MEDS ORDERED: AMOXICILLIN TRIHYDRATE 500 MG CAPSULE PO SCH (14:00)
[2018-01-19 17:05] VITALS: BP 126/65
== END 2018-01-19 20:43 | DRG 193 ==
LOC: ER 06:53 → EH 12:07 → 4S 18:03 → 4W 01-17 07:41
PROVIDERS: ADMIT Internal Medicine; ATTEND Internal Medicine
DX: J18.9 Pneumonia, unspecified organism (principal); G93.41 Metabolic encephalopathy; F03.91 Unspecified dementia, unspecified severity, with behavioral disturbance; R47.01 Aphasia; I10 Essential (primary) hypertension; E03.9 Hypothyroidism, unspecified; Z79.84 Long term (current) use of oral hypoglycemic drugs; Z79.899 Other long term (current) drug therapy; E78.5 Hyperlipidemia, unspecified; F03.90 Unspecified dementia, unspecified severity, without behavioral disturbance, psychotic disturbance, mood disturbance, and anxiety; Z88.2 Allergy status to sulfonamides; Z88.8 Allergy status to other drugs, medicaments and biological substances; E11.9 Type 2 diabetes mellitus without complications
CPT/HCPCS: 36415; 71045; 80048; 80053; 80202; 80307; 81001; 82550; 82553; 82565; 82803; 82962; 83036; 83605; 83690; 83735; 83880; 84100; 84443; 84484; 85025; 87040; 87077; 87186; 93005; 93010; 96365; 99285; J0456; J0696; J1650; J1956; J3370; J7030; J7060

== ENCOUNTER 2018-03-24 10:01 | Emergency (ER) | payer MEDICARE, MEDICAID ==
[2018-03-24 11:33] LABS: ABSOLUTE EOSINOPHILS # (AUTO) 0.2 10^3/uL (0.0-0.6); ABSOLUTE LYMPHOCYTES (AUTO) 1.3 10^3/uL (0.5-4.7); ABSOLUTE MONOCYTES (AUTO) 0.6 10^3/uL (0.1-1.4); ABSOLUTE NEUT (AUTO) 6.2 10^3/uL (1.7-8.2); BASOPHILS % (AUTO) 0.4 % (0-2); EOSINOPHILS % (AUTO) 2.2 % (0-6); HEMATOCRIT 37.1 % (37.9-51.0); HEMOGLOBIN 12.3 g/dL (13.5-17.0); LYMPHOCYTES % (AUTO) 15.7 % (13-45); MEAN CORPUSCULAR HEMOGLOBIN 28.7 pg (27.0-33.4); MEAN CORPUSCULAR HGB CONC 33.2 g/dL (32.0-36.0); MEAN CORPUSCULAR VOLUME 87 fl (80-97); MONOCYTES % (AUTO) 7.1 % (3-13); PLATELET COUNT 188 10^3/uL (150-450); RED BLOOD COUNT 4.29 10^6/uL (4.35-5.55); RED CELL DISTRIBUTION WIDTH 14.4 % (11.5-14.0); SEGMENTED NEUTROPHILS % (AUTO) 74.6 % (42-78); TOTAL CELLS COUNTED % (AUTO) 100 %; WHITE BLOOD COUNT 8.2 10^3/uL (4.0-10.5)
--- NOTE | 2018-03-24 11:34 | ER Document Report ---
ED General - General Chief Complaint: Altered Mental Status Stated Complaint: ALTERED MENTAL STATUS Time Seen by Provider: 03/24/18 11:03 Information source: Transfer Record, [facility] Records Notes: Patient is a 67-year-old male that presents from the [facility]. I called to the provider taking care of the patient who states that the patient was getting shaved and base and became unresponsive for a few minutes. Patient was sitting and had his eyes closed. No seizure activity noted. They state by the time EMS arrived the patient was back to baseline. At baseline the patient does not talk. He speaks only possibly 1-2 word responses. Patient is normally not oriented to person place or time secondary to serious dementia. There has been no noted vomiting or fevers. Patient was admitted in November secondary to a similar complaint with some electrolyte abnormalities and possibly urinary tract infection. TRAVEL OUTSIDE OF THE [place] IN LAST 30 DAYS: No - HPI Onset: Other - See above Onset/Duration: Sudden Quality of pain: No pain Severity: Moderate Pain Level: Denies Associated symptoms: Other - See above Exacerbated by: Denies Relieved by: Denies Similar symptoms previously: Yes Recently seen / treated by doctor: Yes - Related Data Allergies/Adverse Reactions: Sulfa (Sulfonamide Antibiotics) Allergy (Verified 01/14/18 07:24) trimethoprim [From Bactrim] Allergy (Verified 01/14/18 07:24) Past Medical History - Social History Smoking Status: Unknown if Ever Smoked Cigarette use (# per day): No Chew tobacco use (# tins/day): No Smoking Education Provided: No Frequency of alcohol use: None Drug Abuse: None Family History: None, Reviewed & Not Pertinent, Other - Unable to obtain due to patient's mentation Patient has suicidal ideation: No Patient has homicidal ideation: No - Past Medical History Cardiac Medical History: Reports: Hx Hypercholesterolemia, Hx Hypertension Endocrine Medical History: Reports: Hx Diabetes Mellitus Type 2 Renal/ Medical History: Denies: Hx Peritoneal Dialysis Psychiatric Medical History: Reports: Hx Dementia - Immunizations Immunizations up to date: No Hx Diphtheria, Pertussis, Tetanus Vaccination: Yes - unknown Hx Pneumococcal Vaccination: 08/08/14 Review of Systems - Review of Systems -: Yes ROS unobtainable due to patient's medical condition Physical Exam - Vital signs Vitals: Temp Pulse Resp BP Pulse Ox 97.9 F 58 L 18 119/61 94 03/24/18 10:08 03/24/18 10:08 03/24/18 10:08 03/24/18 10:08 03/24/18 10:08 Notes: Reviewed vital signs and nursing note as charted by RN. CONSTITUTIONAL: Alert and tracking minimally HEAD: Normocephalic; atraumatic EYES: PERRL ENT: Normal nose; no rhinorrhea; moist mucous membranes; pharynx without lesions noted NECK: Supple without meningismus; non-tender; no cervical lymphadenopathy, no masses CARD: Regular rate and rhythm; no murmurs, no clicks, no rubs, no gallops; symmetric distal pulses RESP: Normal chest excursion without splinting or tachypnea; breath sounds clear and equal bilaterally; no wheezes, no rhonchi, no rales ABD/GI: Normal bowel sounds; non-distended; soft, non-tender BACK: The back appears normal and is non-tender to palpation EXT: Normal ROM in all joints; non-tender to palpation; no edema SKIN: Normal color for age and race; warm; dry; no acute lesions noted NEURO: Moves all extremities Course - Re-evaluation Re-evalutation: 03/24/18 11:33 Given the history and physical examination in this patient with baseline severe dementia who is not a DNR/DNI, we obtain basic labs, catheterized urine analysis , and a CT scan of the head. If this is unremarkable I do not believe that the patient will require any other imaging or laboratory workup. 03/24/18 14:12 Labs and imaging as recorded. Patient still appears to be at baseline. I will provide IV fluid and discharge the patient back to the facility. Strict return precautions have been explained in the discharge summary instructions. - Vital Signs Vital signs: Temp Pulse Resp BP Pulse Ox 97.9 F 58 L 18 119/61 94 03/24/18 10:08 03/24/18 10:08 03/24/18 10:08 03/24/18 10:08 03/24/18 10:08 - Laboratory Result Diagrams: 03/24/18 11:23 03/24/18 11:23 Laboratory results interpreted by me: 03/24/18 03/24/18 11:23 11:23 RBC 4.29 L Hgb 12.3 L Hct 37.1 L RDW 14.4 H Sodium 146.4 H Chloride 110 H Discharge - Discharge Clinical Impression: Altered mental status Qualifiers: Altered mental status type: unspecified Qualified Code(s): R41.82 - Altered mental status, unspecified Condition: Good Disposition: HOME, SELF-CARE Additional Instructions: Please bring him back immediately with any fevers, vomiting, repeat change in mental status, or any other acute problems. Please have the patient follow-up with the primary care provider with the facility for reevaluation. Referrals: TALON BETANCOURT MD [Primary Care Provider] - Follow up as needed
[2018-03-24 11:53] LABS: ANION GAP 12 (5-19); BLOOD UREA NITROGEN 14 mg/dL (7-20); CALCIUM 9.7 mg/dL (8.4-10.2); CARBON DIOXIDE 24 mmol/L (22-30); CHLORIDE 110 mmol/L (98-107); GLUCOSE 105 mg/dL (75-110); POTASSIUM 4.7 mmol/L (3.6-5.0); SODIUM 146.4 mmol/L (137-145)
--- NOTE | 2018-03-24 12:31 | RADIOLOGY REPORT (SQ) ---
EXAM DESCRIPTION: CT HEAD WITHOUT COMPLETED DATE/TIME: 03/24/2018 12:17 pm REASON FOR STUDY: 11; AMS COMPARISON: 11/28/2017 TECHNIQUE: Axial images acquired through the brain without intravenous contrast. Images reviewed wi th bone, brain and subdural windows. Additional sagittal and coronal reconstructions were generated. Images stored on PACS. All CT scanners at this facility use dose modulation, iterative reconstruction, and/or weight based d osing when appropriate to reduce radiation dose to as low as reasonably achievable (ALARA). [facility]: Dose Right [facility]: CareDose [facility]: Dose Right [facility]: Teradose 4D [facility]: Smart Railsware RADIATION DOSE: CT Rad equipment meets quality standard of care and radiation dose reduction techniq ues were employed. CTDIvol: 53.2 - 55.2 mGy. DLP: 2236 mGy-cm.mGy. LIMITATIONS: None. FINDINGS: VENTRICLES: Prominent. CEREBRUM: No masses. No hemorrhage. No midline shift. Areas of low density in the white matter mos t likely due to chronic micro-vascular ischemic change. No evidence for acute infarction. CEREBELLUM: No masses. No hemorrhage. No alteration of density. No evidence for acute infarction. EXTRAAXIAL SPACES: Age-related involutional change. No fluid collections. No masses. ORBITS AND GLOBE: No intra- or extraconal masses. Normal contour of globe without masses. CALVARIUM: No fracture. PARANASAL SINUSES: No fluid or mucosal thickening. SOFT TISSUES: No mass or hematoma. OTHER: No other significant finding. IMPRESSION: CHRONIC CHANGES OF ATROPHY AND MICROVASCULAR ISCHEMIA. NO ACUTE PROCESS. EVIDENCE OF ACUTE STROKE: NO. TECHNICAL DOCUMENTATION: JOB ID: [id number] Quality ID # [id number]: Final reports with documentation of one or more dose reduction techniques (e.g., Au tomated exposure control, adjustment of the mA and/or kV according to patient size, use of iterative reconstruction technique) 2010 [employer]- All Rights Reserved Reading location - IP/workstation name: [email or web address]
[2018-03-24 13:09] LABS: APPEARANCE,URINE CLEAR; BILIRUBIN,URINE NEGATIVE (NEGATIVE); COLOR,URINE COLORLESS; GLUCOSE, URINE NEGATIVE (NEGATIVE); KETONES,URINE NEGATIVE (NEGATIVE); LEUKOCYTE ESTERASE,URINE NEGATIVE (NEGATIVE); NITRITE,URINE NEGATIVE (NEGATIVE); PROTEIN,URINE NEGATIVE (NEGATIVE); URINE SPECIFIC GRAVITY 1.003; UROBILINOGEN,URINE NEGATIVE mg/dL (<2.0)
[2018-03-24] MEDS ORDERED: NORMAL SALINE 1000 ML 1,000 ML IV ONE (14:11)
[2018-03-24 17:11] VITALS: BP 146/85
== END 2018-03-24 17:11 | disposition home or self-care (01) ==
LOC: ER 10:01
DX: R41.82 Altered mental status, unspecified (principal); I10 Essential (primary) hypertension; E11.9 Type 2 diabetes mellitus without complications
CPT/HCPCS: 36415; 70450; 80048; 81001; 85025; 87086; 99285